=== PATIENT | female | born 1935 | race Caucasian/White ===

== ENCOUNTER 2018-04-01 15:56 | Outpatient (CLI) | payer MEDICARE ==
--- NOTE | 2018-04-01 16:18 | RAD ---
RIGHT HAND TWO VIEWS: History: Right hand pain. FINDINGS/IMPRESSION: Degenerative changes are seen. No acute fracture, dislocation, or bony destruction identified. POS: [facility]
--- NOTE | 2018-04-01 17:29 | RAD ---
LUMBAR SPINE 3 VIEWS: Date: 04/01/18 HISTORY: Low back pain. FINDINGS/IMPRESSION: Multilevel degenerative changes are seen with mild levoscoliosis of the lumbar spine. No fracture, spicer bluxation, or bony destruction is identified. Vascular calcifications are present. There is suggestio n of a 3.2 cm aneurysm in the abdominal aorta at L3-4 level. This should be evaluated with an ultraso und of the abdominal aorta. CODE T POS: [facility]
== END 2018-04-01 15:57 | disposition home or self-care (01) ==
LOC: RAD-FRANK 15:56
PROVIDERS: ATTEND Internal Medicine
DX: M54.9 Dorsalgia, unspecified (principal); M79.641 Pain in right hand; M47.816 Spondylosis without myelopathy or radiculopathy, lumbar region; M41.9 Scoliosis, unspecified; M19.041 Primary osteoarthritis, right hand
CPT/HCPCS: 72100

== ENCOUNTER 2019-04-28 15:41 | Outpatient (CLI) | payer MEDICARE ==
--- NOTE | 2019-04-28 15:57 | RAD ---
Exam: XR Hip Lt 2-3 View HISTORY: Left hip pain. COMPARISON: None FINDINGS: Radiopaque suture material overlies the lower aspect of the pubic symphysis. No acute fracture, dislocation, or other acute osseous abnormality is identified. Vascular calcifications are seen in the femoral artery. IMPRESSION: No acute osseous abnormality is identified. If there is strong clinical concern for a fracture, MRI w ould be more sensitive study of choice for evaluation of a radiographically occult fracture.
== END 2019-04-28 15:42 | disposition home or self-care (01) ==
LOC: RAD-FRANK 15:41
PROVIDERS: ATTEND Internal Medicine
DX: M25.551 Pain in right hip (principal)

== ENCOUNTER 2021-02-28 08:13 | Inpatient (IN) | payer MEDICARE ==
[2021-02-28 09:56] LABS: #Eosinphils 0.1 thou/uL (0.0-0.7); #Lymphocytes 0.9 thou/uL (1.20-3.40); #Monocytes 0.4 thou/uL (0.11-0.59); #Neutrophils 4.4 thou/uL (1.40-6.50); %Basophils 0.3 % (0.0-1.0); %Eosinophils 1.6 % (0.0-10.0); %Lymphocytes 15.8 % (21.0-51.0); %Monocytes 6.2 % (0.0-10.0); %Neutrophils 76.1 % (42.0-75.0); Hemoglobin 13.8 g/dL (12.0-16.0); Mean Corpuscular HGB CONC 33.5 g/dL (32.0-36.0); Mean Corpuscular Hemoglobin 33.7 pg (27.0-31.0); Mean Platelet Volume 6.9 fL (7.4-10.4); Platelet Count 234 thou/uL (130-400); RBC Distribution Width 12.2 % (11.5-14.5); White Blood Cell (WBC) Count 5.7 thou/uL (4.8-10.8)
[2021-02-28 10:22] LABS: ALT (SGPT) 22 U/L (8-55); AST (SGOT) 38 U/L (5-34); Albumin 3.9 g/dL (3.4-4.8); Alkaline Phosphatase 47 U/L (40-110); Anion Gap 15 mmol/L (10-20); BUN (Urea Nitrogen) 13 mg/dL (9.8-20.1); Bilirubin, Total 0.4 mg/dL (0.2-1.2); Calc. Creatinine Clearance 0 mL/min (70-130); Calcium 9.1 mg/dL (7.8-10.44); Carbon Dioxide 22 mmol/L (23-31); Chloride 105 mmol/L (98-107); Globulin 3.7 g/dL (2.4-3.5); Glucose 231 mg/dL (83-110); Lipase 39 U/L (8-78); Magnesium 1.9 mg/dL (1.6-2.6); Potassium 4.1 mmol/L (3.5-5.1); Protein, Total 7.6 g/dL (5.8-8.1); Sodium 138 mmol/L (136-145)
[2021-02-28] MEDS ORDERED: Lidocaine Viscous Sol 2% 15 ml UD Cup ONE (12:58)
[2021-02-28] MEDS ORDERED: Mag-Al 1200 mg/1200 mg/30 ML UDCUP ONE (12:58)
[2021-02-28] MEDS ORDERED: Calcium Carbonate 500 MG ChewTAB PO PRN (15:03)
[2021-02-28] MEDS ORDERED: Bisacodyl 5 MG TAB PO PRN (15:03)
[2021-02-28] MEDS ORDERED: Acetaminophen 325 MG TAB PO PRN (15:03)
[2021-02-28] MEDS ORDERED: Ondansetron PF 4 MG/2 ML Vial IVP PRN (15:03)
[2021-02-28] MEDS ORDERED: Dextrose 5% in Water 1,000 ML IV PRN (15:09)
[2021-02-28] MEDS ORDERED: Dextrose 50% Abboject 50 ML SYRINGE SLOW IVP PRN (15:09)
[2021-02-28] MEDS ORDERED: Pantoprazole 40 MG VIAL IVP SCH (15:15)
[2021-02-28] MEDS ORDERED: Sodium Chloride 0.9% 1,000 ML IV SCH (16:00)
[2021-02-28 16:06] LABS: Troponin I Less than 0.010 ng/mL (< 0.028)
[2021-02-28 16:50] LABS: SARS-CoV-2 NAA Rapid Test Not Detected (NotDetected)
[2021-02-28] MEDS: Carvedilol 3.125 MG TAB PO SCH (18:29)
[2021-02-28] MEDS: Dicyclomine 10 MG CAP PO SCH ×2 (18:30→20:23)
[2021-02-28 18:35] LABS: Troponin I Less than 0.010 ng/mL (< 0.028)
[2021-02-28] MEDS ORDERED: Bisacodyl 5 MG TAB PO SCH (19:00)
[2021-02-28 19:47] VITALS: BMI 28.1
[2021-02-28] MEDS: Simethicone Chewable 80 MG TAB PO SCH ×2 (20:22→21:54)
[2021-02-28] MEDS: Atorvastatin Calcium 40 MG TAB PO SCH (20:23)
[2021-03-01] MEDS ORDERED: Enoxaparin Sodium 40 MG/0.4 ML SYRINGE SC SCH (09:00)
[2021-03-01] MEDS ORDERED: Clopidogrel Bisulfate 75 MG TAB PO SCH (09:00)
[2021-03-01] MEDS: Aspirin 81 mg Enteric Coated Tablet PO SCH (09:05)
[2021-03-01] MEDS: Simethicone Chewable 80 MG TAB PO SCH ×4 (09:05→20:46)
[2021-03-01] MEDS: Dicyclomine 10 MG CAP PO SCH ×2 (09:06→13:07)
[2021-03-01] MEDS: Carvedilol 3.125 MG TAB PO SCH ×2 (09:06→17:36)
[2021-03-01] MEDS: Amlodipine 5 MG TAB PO SCH ×2 (09:12→20:46)
[2021-03-01 09:16] LABS: #Lymphocytes 0.9 thou/uL (1.20-3.40); #Monocytes 0.5 thou/uL (0.11-0.59); #Neutrophils 4.9 thou/uL (1.40-6.50); %Basophils 0.2 % (0.0-1.0); %Eosinophils 0.7 % (0.0-10.0); %Lymphocytes 14.7 % (21.0-51.0); %Monocytes 8.2 % (0.0-10.0); %Neutrophils 76.2 % (42.0-75.0); Hemoglobin 13.4 g/dL (12.0-16.0); Mean Corpuscular HGB CONC 32.9 g/dL (32.0-36.0); Mean Corpuscular Hemoglobin 32.7 pg (27.0-31.0); Mean Corpuscular Volume 99.4 fL (78.0-98.0); Platelet Count 261 thou/uL (130-400); RBC Distribution Width 11.8 % (11.5-14.5); Red Blood Cell (RBC) Count 4.09 mill/uL (4.20-5.40); White Blood Cell (WBC) Count 6.4 thou/uL (4.8-10.8)
[2021-03-01 09:45] LABS: Hemoglobin A1c 8.1 % (4.0-6.0)
[2021-03-01 09:46] LABS: ALT (SGPT) 20 U/L (8-55); AST (SGOT) 28 U/L (5-34); Albumin 3.6 g/dL (3.4-4.8); Alkaline Phosphatase 44 U/L (40-110); Anion Gap 14 mmol/L (10-20); BUN (Urea Nitrogen) 11 mg/dL (9.8-20.1); Bilirubin, Total 0.4 mg/dL (0.2-1.2); Calc. Creatinine Clearance 42 mL/min (70-130); Calcium 8.8 mg/dL (7.8-10.44); Carbon Dioxide 21 mmol/L (23-31); Chloride 108 mmol/L (98-107); Cholesterol 131 mg/dl (< 200 Desired); Globulin 3.4 g/dL (2.4-3.5); Glucose 188 mg/dL (83-110); HDL Cholesterol 26 mg/dL (>60 Neg Risk); LDL Cholesterol, Calculated 68 mg/dL; Potassium 3.8 mmol/L (3.5-5.1); Sodium 139 mmol/L (136-145); Triglycerides 183 mg/dL (Less than 150)
[2021-03-01] MEDS: Atorvastatin Calcium 40 MG TAB PO SCH (20:46)
[2021-03-02] MEDS: Levothyroxine Sodium 125 MCG TAB PO SCH (04:45)
[2021-03-02 05:00] LABS: #Eosinphils 0.1 thou/uL (0.0-0.7); #Lymphocytes 1.4 thou/uL (1.20-3.40); #Monocytes 0.5 thou/uL (0.11-0.59); #Neutrophils 3.7 thou/uL (1.40-6.50); %Basophils 0.3 % (0.0-1.0); %Eosinophils 1.8 % (0.0-10.0); %Lymphocytes 25.1 % (21.0-51.0); %Monocytes 8.3 % (0.0-10.0); %Neutrophils 64.6 % (42.0-75.0); Hemoglobin 13.4 g/dL (12.0-16.0); Mean Corpuscular HGB CONC 33.6 g/dL (32.0-36.0); Mean Corpuscular Hemoglobin 33.3 pg (27.0-31.0); Mean Corpuscular Volume 99.2 fL (78.0-98.0); Platelet Count 266 thou/uL (130-400); RBC Distribution Width 11.9 % (11.5-14.5); Red Blood Cell (RBC) Count 4.01 mill/uL (4.20-5.40); White Blood Cell (WBC) Count 5.7 thou/uL (4.8-10.8)
[2021-03-02 05:24] LABS: Anion Gap 10 mmol/L (10-20); BUN (Urea Nitrogen) 14 mg/dL (9.8-20.1); Calc. Creatinine Clearance 43 mL/min (70-130); Carbon Dioxide 24 mmol/L (23-31); Chloride 106 mmol/L (98-107); Potassium 3.8 mmol/L (3.5-5.1); Sodium 136 mmol/L (136-145)
[2021-03-02 05:25] LABS: Calcium 9.1 mg/dL (7.8-10.44); Glucose 190 mg/dL (83-110); Magnesium 2.1 mg/dL (1.6-2.6)
[2021-03-02] MEDS ORDERED: Sodium Chloride 0.9% 1,000 ML IV SCH (06:00)
[2021-03-02] MEDS ORDERED: CEFAZOLIN 1 GM VIAL ONE (06:35)
[2021-03-02] MEDS ORDERED: ceFAZolin 2 GM/DEX 5% 100 ML BAG ONE (06:35)
[2021-03-02] MEDS ORDERED: Gentamicin 80 MG/2 ML VIAL ONE (06:35)
[2021-03-02] MEDS ORDERED: Vancomycin HCl 500 MG VIAL ONE (06:35)
[2021-03-02] MEDS ORDERED: Fentanyl 100 MCG/2 ML VIAL ONE (07:08)
[2021-03-02] MEDS ORDERED: Midazolam HCl 2 mg/2 ml Vial ONE (07:08)
[2021-03-02] MEDS ORDERED: Lidocaine 1% (PF) 30 ML VIAL ONE ×2 (07:16→08:28)
[2021-03-02] MEDS ORDERED: Carvedilol 3.125 MG TAB ONE ×2 (08:28)
[2021-03-02] MEDS ORDERED: Acetaminophen/Codeine 30-300mg Tablet PO PRN ×2 (08:59)
[2021-03-02] MEDS ORDERED: Iopamidol 370 76% 50 ML VIAL FS ONE (09:00)
[2021-03-02] MEDS: Amlodipine 5 MG TAB PO SCH ×2 (09:05→20:39)
[2021-03-02] MEDS: Aspirin 81 mg Enteric Coated Tablet PO SCH (09:05)
[2021-03-02] MEDS: Simethicone Chewable 80 MG TAB PO SCH ×4 (09:06→22:16)
[2021-03-02] MEDS: Carvedilol 3.125 MG TAB PO SCH (09:07)
[2021-03-02] MEDS: Cephalexin 250 MG CAP PO SCH ×3 (10:16→20:39)
[2021-03-02] MEDS ORDERED: hydrALAZINE 20 MG/ML VIAL SLOW IVP PRN (12:35)
[2021-03-02] MEDS: Carvedilol 6.25 MG TAB PO SCH ×2 (15:04→20:38)
[2021-03-02] MEDS: HumaLOG 300 UNITS/3 ML VIAL SC PRN ×2 (17:04→20:42)
[2021-03-02] MEDS ORDERED: Empagliflozin 10 MG TAB PO SCH ×2 (18:15→21:00)
[2021-03-02] MEDS: Atorvastatin Calcium 40 MG TAB PO SCH (20:39)
[2021-03-03] MEDS ORDERED: traZODone HCl 50 MG TAB PO SCH (01:30)
[2021-03-03 05:08] LABS: #Eosinphils 0.2 thou/uL (0.0-0.7); #Lymphocytes 1.5 thou/uL (1.20-3.40); #Monocytes 0.8 thou/uL (0.11-0.59); #Neutrophils 5.8 thou/uL (1.40-6.50); %Basophils 0.3 % (0.0-1.0); %Eosinophils 2.1 % (0.0-10.0); %Lymphocytes 18.2 % (21.0-51.0); %Monocytes 9.1 % (0.0-10.0); %Neutrophils 70.3 % (42.0-75.0); Mean Corpuscular HGB CONC 35.1 g/dL (32.0-36.0); Mean Corpuscular Hemoglobin 34.6 pg (27.0-31.0); Mean Corpuscular Volume 98.7 fL (78.0-98.0); Platelet Count 243 thou/uL (130-400); Red Blood Cell (RBC) Count 4.04 mill/uL (4.20-5.40); White Blood Cell (WBC) Count 8.2 thou/uL (4.8-10.8)
[2021-03-03] MEDS: Levothyroxine Sodium 125 MCG TAB PO SCH (05:16)
[2021-03-03 05:30] LABS: Anion Gap 14 mmol/L (10-20); BUN (Urea Nitrogen) 15 mg/dL (9.8-20.1); Calc. Creatinine Clearance 37 mL/min (70-130); Calcium 8.9 mg/dL (7.8-10.44); Carbon Dioxide 23 mmol/L (23-31); Chloride 106 mmol/L (98-107); Glucose 184 mg/dL (83-110); Magnesium 1.9 mg/dL (1.6-2.6); Potassium 3.8 mmol/L (3.5-5.1); Sodium 139 mmol/L (136-145)
[2021-03-03] MEDS: HumaLOG 300 UNITS/3 ML VIAL SC PRN ×3 (06:18→17:37)
[2021-03-03] MEDS: Carvedilol 6.25 MG TAB PO SCH ×3 (08:40→21:05)
[2021-03-03] MEDS: Simethicone Chewable 80 MG TAB PO SCH ×4 (08:40→21:06)
[2021-03-03] MEDS: Cephalexin 250 MG CAP PO SCH ×3 (08:40→21:10)
[2021-03-03] MEDS: Amlodipine 5 MG TAB PO SCH ×2 (08:40→21:05)
[2021-03-03] MEDS: Aspirin 81 mg Enteric Coated Tablet PO SCH (08:40)
[2021-03-03] MEDS: Empagliflozin 10 MG TAB PO SCH (08:43)
[2021-03-03] MEDS: Sodium Chloride 0.9% 1,000 ML IV SCH ×2 (10:52→21:04)
[2021-03-03] MEDS ORDERED: Bisacodyl 5 MG TAB PO SCH (13:00)
[2021-03-03] MEDS: Senokot S 8.6-50 MG TAB PO PRN (17:37)
[2021-03-03] MEDS: Atorvastatin Calcium 40 MG TAB PO SCH (21:05)
[2021-03-03] MEDS: traZODone HCl 50 MG TAB PO SCH (21:06)
[2021-03-04 04:45] LABS: #Eosinphils 0.2 thou/uL (0.0-0.7); #Lymphocytes 1.3 thou/uL (1.20-3.40); #Monocytes 0.7 thou/uL (0.11-0.59); #Neutrophils 5.1 thou/uL (1.40-6.50); %Basophils 0.6 % (0.0-1.0); %Eosinophils 3.3 % (0.0-10.0); %Lymphocytes 17.6 % (21.0-51.0); %Monocytes 9.1 % (0.0-10.0); %Neutrophils 69.5 % (42.0-75.0); Hemoglobin 13.8 g/dL (12.0-16.0); Mean Corpuscular HGB CONC 34.2 g/dL (32.0-36.0); Mean Corpuscular Hemoglobin 33.7 pg (27.0-31.0); Mean Corpuscular Volume 98.6 fL (78.0-98.0); Mean Platelet Volume 7.1 fL (7.4-10.4); Platelet Count 201 thou/uL (130-400); RBC Distribution Width 12.1 % (11.5-14.5); Red Blood Cell (RBC) Count 4.09 mill/uL (4.20-5.40); White Blood Cell (WBC) Count 7.3 thou/uL (4.8-10.8)
[2021-03-04 05:08] LABS: Anion Gap 15 mmol/L (10-20); BUN (Urea Nitrogen) 15 mg/dL (9.8-20.1); Calc. Creatinine Clearance 49 mL/min (70-130); Carbon Dioxide 19 mmol/L (23-31); Chloride 108 mmol/L (98-107); Glucose 159 mg/dL (83-110); Magnesium 1.9 mg/dL (1.6-2.6); Potassium 3.7 mmol/L (3.5-5.1); Sodium 138 mmol/L (136-145)
[2021-03-04] MEDS: Levothyroxine Sodium 125 MCG TAB PO SCH (05:42)
[2021-03-04] MEDS: HumaLOG 300 UNITS/3 ML VIAL SC PRN ×3 (06:27→16:52)
[2021-03-04] MEDS: Amlodipine 5 MG TAB PO SCH ×2 (08:24→20:40)
[2021-03-04] MEDS: Carvedilol 6.25 MG TAB PO SCH ×3 (08:24→20:40)
[2021-03-04] MEDS: Senokot S 8.6-50 MG TAB PO PRN (08:24)
[2021-03-04] MEDS: Simethicone Chewable 80 MG TAB PO SCH ×4 (08:24→20:40)
[2021-03-04] MEDS: Empagliflozin 10 MG TAB PO SCH (08:24)
[2021-03-04] MEDS: Aspirin 81 mg Enteric Coated Tablet PO SCH (08:25)
[2021-03-04] MEDS: Cephalexin 250 MG CAP PO SCH ×3 (08:25→20:40)
[2021-03-04] MEDS: Sodium Chloride 0.9% 1,000 ML IV SCH (10:35)
[2021-03-04] MEDS: Atorvastatin Calcium 40 MG TAB PO SCH (20:40)
[2021-03-04] MEDS: traZODone HCl 50 MG TAB PO SCH (20:40)
[2021-03-04] MEDS ORDERED: Acetaminophen/Codeine 30-300mg Tablet PO PRN ×2 (22:04)
[2021-03-05] MEDS: Levothyroxine Sodium 125 MCG TAB PO SCH (05:17)
[2021-03-05] MEDS: Simethicone Chewable 80 MG TAB PO SCH ×4 (08:37→20:24)
[2021-03-05] MEDS: Carvedilol 6.25 MG TAB PO SCH ×3 (08:37→20:24)
[2021-03-05] MEDS: Empagliflozin 10 MG TAB PO SCH (08:37)
[2021-03-05] MEDS: Aspirin 81 mg Enteric Coated Tablet PO SCH (08:37)
[2021-03-05] MEDS: Amlodipine 5 MG TAB PO SCH ×2 (08:37→20:24)
[2021-03-05] MEDS: Cephalexin 250 MG CAP PO SCH ×3 (08:37→20:24)
[2021-03-05] MEDS ORDERED: traMADol HCl 50 MG TAB PO PRN (15:49)
[2021-03-05] MEDS: Atorvastatin Calcium 40 MG TAB PO SCH (20:24)
[2021-03-05] MEDS: traZODone HCl 50 MG TAB PO SCH (20:25)
[2021-03-06] MEDS: Levothyroxine Sodium 125 MCG TAB PO SCH (05:12)
[2021-03-06] MEDS: HumaLOG 300 UNITS/3 ML VIAL SC PRN ×3 (06:19→18:11)
[2021-03-06] MEDS: Cephalexin 250 MG CAP PO SCH ×2 (09:04→15:38)
[2021-03-06] MEDS: Amlodipine 5 MG TAB PO SCH (09:04)
[2021-03-06] MEDS: Aspirin 81 mg Enteric Coated Tablet PO SCH (09:04)
[2021-03-06] MEDS: Carvedilol 6.25 MG TAB PO SCH ×2 (09:04→15:38)
[2021-03-06] MEDS: Empagliflozin 10 MG TAB PO SCH (09:04)
[2021-03-06] MEDS: Simethicone Chewable 80 MG TAB PO SCH ×3 (09:04→18:12)
[2021-03-06 16:45] VITALS: BP 158/70; TEMP 98
== END 2021-03-06 19:10 | DRG 244 ==
LOC: ERS 08:13 → SUATTDRO 08:13 → 2NO 14:58 → OBSVTOIN 03-02 13:26
PROVIDERS: ADMIT Internal Medicine; ATTEND Internal Medicine
PROC: 0JH606Z Insertion of Pacemaker, Dual Chamber into Chest Subcutaneous Tissue and Fascia, Open Approach (ICD-10-PCS; principal; 2021-03-02)
PROC: 02H63JZ Insertion of Pacemaker Lead into Right Atrium, Percutaneous Approach (ICD-10-PCS; 2021-03-02)
PROC: 02HK3JZ Insertion of Pacemaker Lead into Right Ventricle, Percutaneous Approach (ICD-10-PCS; 2021-03-02)
PROC: B51N1ZZ Fluoroscopy of Left Upper Extremity Veins using Low Osmolar Contrast (ICD-10-PCS; 2021-03-02)
DX: I44.1 Atrioventricular block, second degree (principal); I10 Essential (primary) hypertension; E78.5 Hyperlipidemia, unspecified; Z66 Do not resuscitate; Z20.822 Contact with and (suspected) exposure to COVID-19; E11.65 Type 2 diabetes mellitus with hyperglycemia; I25.10 Atherosclerotic heart disease of native coronary artery without angina pectoris; I71.4 Abdominal aortic aneurysm, without rupture; N28.1 Cyst of kidney, acquired; K76.0 Fatty (change of) liver, not elsewhere classified; E88.81 Metabolic syndrome and other insulin resistance; Z85.3 Personal history of malignant neoplasm of breast; Z90.13 Acquired absence of bilateral breasts and nipples; Z95.5 Presence of coronary angioplasty implant and graft; Z79.01 Long term (current) use of anticoagulants; Z79.84 Long term (current) use of oral hypoglycemic drugs; Z79.890 Hormone replacement therapy; Z79.899 Other long term (current) drug therapy
CPT/HCPCS: 33208; 36415; 36416; 71045; 74177; 80048; 80053; 80061; 83036; 83690; 83735; 84443; 84484; 85025; 93005; 93010; 93306; 94760; 96372; 97139; 99152; 99153; C1785; C1898; G0378; J0690; J1580; J1650; J1815; J2001; J2250; J2405; J3010; J3370; J7050; Q9967; U0002

== ENCOUNTER 2021-03-26 19:11 | Inpatient (IN) | payer MEDICARE ==
[~2021-03-26 19:11] MED LIST: Iopamidol-370 76% 500 ML 1 ML ONE
[2021-03-26] MEDS ORDERED: Acetaminophen 500 MG TAB ONE (19:58)
[2021-03-26] MEDS ORDERED: Cefepime 2 GM VIAL ONE (20:03)
[2021-03-26 20:05] LABS: #Lymphocytes 0.3 thou/uL (1.20-3.40); #Monocytes 0.1 thou/uL (0.11-0.59); #Neutrophils 7.1 thou/uL (1.40-6.50); %Lymphocytes 3.7 % (21.0-51.0); %Monocytes 1.2 % (0.0-10.0); Hemoglobin 13.9 g/dL (12.0-16.0); Mean Corpuscular HGB CONC 34.4 g/dL (32.0-36.0); Mean Corpuscular Hemoglobin 34.6 pg (27.0-31.0); Mean Platelet Volume 6.9 fL (7.4-10.4); Platelet Count 165 thou/uL (130-400); RBC Distribution Width 12.7 % (11.5-14.5); Red Blood Cell (RBC) Count 4.02 mill/uL (4.20-5.40); White Blood Cell (WBC) Count 7.5 thou/uL (4.8-10.8)
[2021-03-26 20:27] LABS: ALT (SGPT) 14 U/L (8-55); AST (SGOT) 30 U/L (5-34); Albumin 3.5 g/dL (3.4-4.8); Alkaline Phosphatase 55 U/L (40-110); Anion Gap 21 mmol/L (10-20); BUN (Urea Nitrogen) 19 mg/dL (9.8-20.1); Bilirubin, Total 1.5 mg/dL (0.2-1.2); CK (CPK) 345 U/L (29-168); Calc. Creatinine Clearance 0 mL/min (70-130); Calcium 8.7 mg/dL (7.8-10.44); Carbon Dioxide 13 mmol/L (23-31); Chloride 108 mmol/L (98-107); Globulin 3.2 g/dL (2.4-3.5); Glucose 226 mg/dL (83-110); Lipase 18 U/L (8-78); Potassium 3.6 mmol/L (3.5-5.1); Protein, Total 6.7 g/dL (5.8-8.1); Sodium 138 mmol/L (136-145)
[2021-03-26 20:46] LABS: CKMB 0.5 ng/mL (0-6.6)
[2021-03-26 20:50] LABS: Bacteria/HPF 2+ HPF (None Seen); Bilirubin 1+ (Negative); Blood, Urine 2+ (Negative); Clarity Turbid (Clear); Glucose, Urine (Dipstick) Greater than 1000 mg/dL (Negative); Ketone, Urine 40 mg/dL (Negative); Leukocyte 75 Leu/uL (Negative); Nitrite Negative (Negative); Protein, Urine (Dipstick) Greater than 600 mg/dL (Neg-Trace); RBC/HPF 0-3 HPF (0-3); Specific Gravity, Urine 1.028 (1.002-1.036); Squamous Epithelial 0-3 HPF (0-3); WBC/HPF Greater than 50 HPF (0-3); pH, Urine 6.5 (5.0-9.0)
[2021-03-26] MEDS ORDERED: Vancomycin 1 GM/200 ML BAG ONE (21:30)
[2021-03-26 23:20] LABS: SARS-CoV-2 NAA Rapid Test Not Detected (NotDetected)
[2021-03-26] MEDS ORDERED: Ondansetron ODT 4 MG TAB PO PRN (23:57)
[2021-03-26] MEDS ORDERED: Ondansetron PF 4 MG/2 ML Vial IVP PRN (23:57)
[2021-03-26] MEDS ORDERED: Acetaminophen 650 MG Suppository PR PRN (23:57)
[2021-03-27] MEDS ORDERED: Dextrose 5% in Water 1,000 ML IV PRN (00:26)
[2021-03-27] MEDS ORDERED: Dextrose 50% Abboject 50 ML SYRINGE SLOW IVP PRN (00:26)
[2021-03-27] MEDS ORDERED: HumaLOG 300 UNITS/3 ML VIAL SC PRN (00:26)
[2021-03-27 00:32] VITALS: BMI 25.8
[2021-03-27 00:52] LABS: Troponin I 0.102 ng/mL (< 0.028)
[2021-03-27] MEDS ORDERED: Sodium Chloride 0.9% 1,000 ML IV SCH (02:45)
[2021-03-27 03:09] LABS: Hemoglobin 11.6 g/dL (12.0-16.0); Mean Corpuscular HGB CONC 34.5 g/dL (32.0-36.0); Mean Corpuscular Hemoglobin 34.5 pg (27.0-31.0); Mean Corpuscular Volume 99.9 fL (78.0-98.0); Mean Platelet Volume 7.3 fL (7.4-10.4); Platelet Count 156 thou/uL (130-400); RBC Distribution Width 12.7 % (11.5-14.5); Red Blood Cell (RBC) Count 3.36 mill/uL (4.20-5.40); White Blood Cell (WBC) Count 12.7 thou/uL (4.8-10.8)
[2021-03-27 03:23] LABS: Troponin I 0.077 ng/mL (< 0.028)
[2021-03-27 03:46] LABS: Anion Gap 16 mmol/L (10-20); BUN (Urea Nitrogen) 22 mg/dL (9.8-20.1); Calc. Creatinine Clearance 36 mL/min (70-130); Calcium 7.7 mg/dL (7.8-10.44); Carbon Dioxide 15 mmol/L (23-31); Chloride 111 mmol/L (98-107); Glucose 238 mg/dL (83-110); Potassium 3.5 mmol/L (3.5-5.1); Sodium 138 mmol/L (136-145)
[2021-03-27 03:59] LABS: Band 28 % (5-11); Lymphocytes 2 % (21-51); MDiff Complete? YES; Monocytes 1 % (0-10); Neutrophil 69 % (42-75)
[2021-03-27] MEDS ORDERED: Calcium Carbonate 500 MG ChewTAB PO PRN (08:54)
[2021-03-27] MEDS ORDERED: Vancomycin 1.5 GRAM/300 ML BAG 1.5 GM in Premix Bag 1 BAG IVPB SCH (09:00)
[2021-03-27] MEDS ORDERED: Cefepime 2 GM in Sodium Chloride 0.9% 100 ML IVPB SCH ×2 (09:00→20:00)
[2021-03-27] MEDS: Enoxaparin Sodium 40 MG/0.4 ML SYRINGE SC SCH (09:41)
[2021-03-27] MEDS: Senokot S 8.6-50 MG TAB PO SCH ×2 (09:46→21:28)
[2021-03-27] MEDS: D5 1/2 NS w/20 mEq KCL 1,000 ML IV SCH ×3 (09:55→19:42)
[2021-03-27] MEDS ORDERED: metroNIDAZOLE 500 MG in Premix Bag 1 BAG IVPB SCH (10:00)
[2021-03-27 10:35] LABS: Anion Gap 14 mmol/L (10-20); BUN (Urea Nitrogen) 23 mg/dL (9.8-20.1); Calc. Creatinine Clearance 35 mL/min (70-130); Calcium 8.1 mg/dL (7.8-10.44); Carbon Dioxide 19 mmol/L (23-31); Chloride 110 mmol/L (98-107); Glucose 180 mg/dL (83-110); Magnesium 1.6 mg/dL (1.6-2.6); Sodium 139 mmol/L (136-145)
[2021-03-27 10:37] LABS: Phosphorus 2.5 mg/dL (2.3-4.7)
[2021-03-27] MEDS ORDERED: Magnesium Sulfate 4 GM in Sodium Chloride 0.9% 250 ML 250 ML IVPB SCH (12:00)
[2021-03-27] MEDS ORDERED: MEROPENEM 1 GM/50 ML 1 GM in Premix Bag 1 BAG IVPB SCH (16:15)
[2021-03-27] MEDS: Acetaminophen 325 MG TAB PO PRN (16:46)
[2021-03-27] MEDS ORDERED: Vancomycin HCl 750 MG in Sodium Chloride 0.9% 250 ML 250 ML IVPB SCH (21:00)
[2021-03-27] MEDS ORDERED: Meropenem 1 GM in Sodium Chloride 0.9% 100 ML IVPB SCH (22:00)
[2021-03-28] MEDS: MEROPENEM 1 GM/50 ML 1 GM in Premix Bag 1 BAG IVPB SCH ×2 (01:33→14:58)
[2021-03-28] MEDS: D5 1/2 NS w/20 mEq KCL 1,000 ML IV SCH ×2 (02:58→15:03)
[2021-03-28] MEDS ORDERED: FLU VACC QS2021-22(65YR UP)/PF 240 MCG/0.7 ML SYRINGE IM ONE (09:00)
[2021-03-28] MEDS ORDERED: D5 1/2 NS w/20 mEq KCL 1,000 ML IV SCH (09:55)
[2021-03-28] MEDS: Enoxaparin Sodium 40 MG/0.4 ML SYRINGE SC SCH (10:16)
[2021-03-28] MEDS: Acetaminophen 325 MG TAB PO PRN ×2 (10:17→23:36)
[2021-03-28] MEDS ORDERED: Aspirin 81 mg Enteric Coated Tablet PO SCH (11:30)
[2021-03-28] MEDS ORDERED: Carvedilol 3.125 MG TAB PO SCH (11:30)
[2021-03-28] MEDS ORDERED: Clopidogrel Bisulfate 75 MG TAB PO SCH (11:30)
[2021-03-28] MEDS ORDERED: tiZANidine HCl 4 MG TAB PO PRN (11:44)
[2021-03-28 12:28] LABS: #Eosinphils 0.1 thou/uL (0.0-0.7); #Lymphocytes 0.7 thou/uL (1.20-3.40); #Monocytes 0.5 thou/uL (0.11-0.59); #Neutrophils 5.2 thou/uL (1.40-6.50); %Eosinophils 0.8 % (0.0-10.0); %Lymphocytes 10.3 % (21.0-51.0); %Monocytes 7.5 % (0.0-10.0); %Neutrophils 81.3 % (42.0-75.0); Hemoglobin 10.4 g/dL (12.0-16.0); Mean Corpuscular HGB CONC 33.9 g/dL (32.0-36.0); Mean Corpuscular Hemoglobin 33.5 pg (27.0-31.0); Mean Corpuscular Volume 98.8 fL (78.0-98.0); Mean Platelet Volume 7.4 fL (7.4-10.4); Platelet Count 167 thou/uL (130-400); RBC Distribution Width 12.6 % (11.5-14.5); Red Blood Cell (RBC) Count 3.09 mill/uL (4.20-5.40); White Blood Cell (WBC) Count 6.4 thou/uL (4.8-10.8)
[2021-03-28 12:45] LABS: ALT (SGPT) 10 U/L (8-55); AST (SGOT) 18 U/L (5-34); Albumin 2.8 g/dL (3.4-4.8); Alkaline Phosphatase 47 U/L (40-110); Anion Gap 11 mmol/L (10-20); BUN (Urea Nitrogen) 16 mg/dL (9.8-20.1); Bilirubin, Total 0.3 mg/dL (0.2-1.2); Calc. Creatinine Clearance 38 mL/min (70-130); Calcium 7.9 mg/dL (7.8-10.44); Carbon Dioxide 17 mmol/L (23-31); Chloride 110 mmol/L (98-107); Globulin 2.8 g/dL (2.4-3.5); Glucose 253 mg/dL (83-110); Magnesium 2.3 mg/dL (1.6-2.6); Phosphorus 1.2 mg/dL (2.3-4.7); Potassium 3.7 mmol/L (3.5-5.1); Protein, Total 5.6 g/dL (5.8-8.1); Sodium 134 mmol/L (136-145)
[2021-03-28] MEDS ORDERED: Amlodipine 5 MG TAB PO SCH (13:00)
[2021-03-28] MEDS ORDERED: Potassium Phosphate 30 MMOL in Sodium Chloride 0.9% 500 ML IVPB SCH (13:00)
[2021-03-28] MEDS ORDERED: Potassium Phosphate 30 MMOL in Sodium Chloride 0.9% 250 ML 250 ML IVPB SCH (13:45)
[2021-03-28] MEDS: Senokot S 8.6-50 MG TAB PO SCH (14:59)
[2021-03-28] MEDS: Carvedilol 3.125 MG TAB PO SCH (17:02)
[2021-03-28] MEDS ORDERED: Cyanocobalamin 1000 MCG/ML VIAL IM SCH (18:30)
[2021-03-28] MEDS ORDERED: Trospium 20 MG TAB PO SCH (21:00)
[2021-03-28] MEDS: Saccharomyces boulardii 250 MG CAP PO SCH (21:23)
[2021-03-28] MEDS: Folic Acid 1 MG TAB PO SCH (21:23)
[2021-03-28] MEDS: Atorvastatin Calcium 40 MG TAB PO SCH (21:24)
[2021-03-28] MEDS: Amlodipine 5 MG TAB PO SCH (21:24)
[2021-03-28] MEDS: HumaLOG 300 UNITS/3 ML VIAL SC PRN (23:24)
[2021-03-29] MEDS: MEROPENEM 1 GM/50 ML 1 GM in Premix Bag 1 BAG IVPB SCH ×2 (04:20→13:27)
[2021-03-29 05:33] LABS: #Eosinphils 0.1 thou/uL (0.0-0.7); #Monocytes 0.5 thou/uL (0.11-0.59); #Neutrophils 3.8 thou/uL (1.40-6.50); %Basophils 0.1 % (0.0-1.0); %Eosinophils 2.2 % (0.0-10.0); %Lymphocytes 18.8 % (21.0-51.0); %Monocytes 9.4 % (0.0-10.0); %Neutrophils 69.4 % (42.0-75.0); Hemoglobin 10.4 g/dL (12.0-16.0); Mean Corpuscular HGB CONC 33.8 g/dL (32.0-36.0); Mean Corpuscular Hemoglobin 34.2 pg (27.0-31.0); Mean Platelet Volume 7.5 fL (7.4-10.4); Platelet Count 138 thou/uL (130-400); RBC Distribution Width 12.7 % (11.5-14.5); Red Blood Cell (RBC) Count 3.04 mill/uL (4.20-5.40); White Blood Cell (WBC) Count 5.4 thou/uL (4.8-10.8)
[2021-03-29] MEDS: Levothyroxine Sodium 125 MCG TAB PO SCH (05:56)
[2021-03-29 06:49] LABS: Albumin 2.6 g/dL (3.4-4.8); Anion Gap 10 mmol/L (10-20); BUN (Urea Nitrogen) 16 mg/dL (9.8-20.1); Calc. Creatinine Clearance 49 mL/min (70-130); Calcium 8.4 mg/dL (7.8-10.44); Carbon Dioxide 20 mmol/L (23-31); Chloride 112 mmol/L (98-107); Glucose 138 mg/dL (83-110); Phosphorus 2.3 mg/dL (2.3-4.7); Potassium 3.7 mmol/L (3.5-5.1); Sodium 138 mmol/L (136-145)
[2021-03-29] MEDS ORDERED: Amlodipine 5 MG TAB PO SCH (09:00)
[2021-03-29] MEDS ORDERED: Empagliflozin 10 MG TAB PO SCH (09:00)
[2021-03-29] MEDS: Carvedilol 3.125 MG TAB PO SCH (09:16)
[2021-03-29] MEDS: Amlodipine 5 MG TAB PO SCH (09:17)
[2021-03-29] MEDS: Clopidogrel Bisulfate 75 MG TAB PO SCH (09:18)
[2021-03-29] MEDS: Folic Acid 1 MG TAB PO SCH ×2 (09:18→20:01)
[2021-03-29] MEDS: Aspirin 81 mg Enteric Coated Tablet PO SCH (09:18)
[2021-03-29] MEDS: Cyanocobalamin (Vitamin B-12) 1,000 MCG TAB PO SCH (09:18)
[2021-03-29] MEDS: D5 1/2 NS w/20 mEq KCL 1,000 ML IV SCH (12:22)
[2021-03-29] MEDS: Heparin 5,000 UNITS/ML VIAL SC SCH ×2 (12:24→20:01)
[2021-03-29] MEDS ORDERED: Carvedilol 6.25 MG TAB PO SCH (17:00)
[2021-03-29] MEDS: Sodium Bicarbonate 150 MEQ in Dextrose 5% in Water 1,000 ML IV SCH (18:24)
[2021-03-29] MEDS: Potassium Bicarbonate/Cit Ac 20 MEQ TAB PO SCH (18:25)
[2021-03-29] MEDS: Atorvastatin Calcium 40 MG TAB PO SCH (20:01)
[2021-03-29] MEDS: Saccharomyces boulardii 250 MG CAP PO SCH (20:52)
[2021-03-29] MEDS: HumaLOG 300 UNITS/3 ML VIAL SC PRN (22:09)
[2021-03-30] MEDS: MEROPENEM 1 GM/50 ML 1 GM in Premix Bag 1 BAG IVPB SCH ×2 (01:29→15:33)
[2021-03-30] MEDS: hydrALAZINE 20 MG/ML VIAL SLOW IVP PRN (04:55)
[2021-03-30] MEDS: Levothyroxine Sodium 125 MCG TAB PO SCH (05:16)
[2021-03-30 05:40] LABS: #Eosinphils 0.1 thou/uL (0.0-0.7); #Lymphocytes 0.8 thou/uL (1.20-3.40); #Monocytes 0.4 thou/uL (0.11-0.59); #Neutrophils 3.3 thou/uL (1.40-6.50); %Basophils 0.8 % (0.0-1.0); %Eosinophils 2.8 % (0.0-10.0); %Lymphocytes 17.9 % (21.0-51.0); %Monocytes 8.7 % (0.0-10.0); %Neutrophils 69.8 % (42.0-75.0); Hemoglobin 10.9 g/dL (12.0-16.0); Mean Corpuscular Volume 99.8 fL (78.0-98.0); Mean Platelet Volume 7.8 fL (7.4-10.4); Platelet Count 159 thou/uL (130-400); RBC Distribution Width 12.5 % (11.5-14.5); White Blood Cell (WBC) Count 4.7 thou/uL (4.8-10.8)
[2021-03-30 05:57] LABS: Albumin 2.9 g/dL (3.4-4.8); Anion Gap 16 mmol/L (10-20); BUN (Urea Nitrogen) 12 mg/dL (9.8-20.1); BUN/Creatinine Ratio 14.81; Calc. Creatinine Clearance 48 mL/min (70-130); Carbon Dioxide 20 mmol/L (23-31); Chloride 108 mmol/L (98-107); Glucose 147 mg/dL (83-110); Magnesium 1.9 mg/dL (1.6-2.6); Phosphorus 2.3 mg/dL (2.3-4.7); Potassium 3.7 mmol/L (3.5-5.1); Sodium 140 mmol/L (136-145)
[2021-03-30] MEDS ORDERED: Magnesium Sulfate 2 GM in Sodium Chloride 0.9% 100 ML IVPB SCH (08:45)
[2021-03-30] MEDS: Potassium Bicarbonate/Cit Ac 20 MEQ TAB PO SCH ×3 (08:48→17:38)
[2021-03-30] MEDS ORDERED: Magnesium 2 GM/50 ML 2 GM in Premix Bag 1 BAG IVPB SCH (09:00)
[2021-03-30] MEDS ORDERED: Ergocalciferol 1.25 MG(50,000 UNITS) CAP PO SCH (09:00)
[2021-03-30] MEDS: Clopidogrel Bisulfate 75 MG TAB PO SCH (09:35)
[2021-03-30] MEDS: Aspirin 81 mg Enteric Coated Tablet PO SCH (09:35)
[2021-03-30] MEDS: Cyanocobalamin (Vitamin B-12) 1,000 MCG TAB PO SCH (09:35)
[2021-03-30] MEDS: Carvedilol 6.25 MG TAB PO SCH ×2 (09:35→17:38)
[2021-03-30] MEDS: Amlodipine 5 MG TAB PO SCH (09:35)
[2021-03-30] MEDS: Folic Acid 1 MG TAB PO SCH ×2 (09:36→21:06)
[2021-03-30] MEDS: Heparin 5,000 UNITS/ML VIAL SC SCH ×2 (09:36→21:06)
[2021-03-30] MEDS: Sodium Bicarbonate 150 MEQ in Dextrose 5% in Water 1,000 ML IV SCH (17:38)
[2021-03-30] MEDS: Atorvastatin Calcium 40 MG TAB PO SCH (21:06)
[2021-03-30] MEDS: Saccharomyces boulardii 250 MG CAP PO SCH (21:06)
[2021-03-31] MEDS: MEROPENEM 1 GM/50 ML 1 GM in Premix Bag 1 BAG IVPB SCH ×2 (01:29→14:16)
[2021-03-31] MEDS: Sodium Bicarbonate 150 MEQ in Dextrose 5% in Water 1,000 ML IV SCH (03:42)
[2021-03-31 05:02] LABS: #Eosinphils 0.1 thou/uL (0.0-0.7); #Lymphocytes 0.9 thou/uL (1.20-3.40); #Monocytes 0.4 thou/uL (0.11-0.59); #Neutrophils 2.8 thou/uL (1.40-6.50); %Basophils 0.3 % (0.0-1.0); %Eosinophils 2.4 % (0.0-10.0); %Lymphocytes 21.3 % (21.0-51.0); %Monocytes 10.4 % (0.0-10.0); %Neutrophils 65.6 % (42.0-75.0); Hemoglobin 10.8 g/dL (12.0-16.0); Mean Corpuscular HGB CONC 33.1 g/dL (32.0-36.0); Mean Corpuscular Hemoglobin 32.8 pg (27.0-31.0); Mean Corpuscular Volume 98.8 fL (78.0-98.0); Mean Platelet Volume 7.4 fL (7.4-10.4); Platelet Count 182 thou/uL (130-400); RBC Distribution Width 12.4 % (11.5-14.5); White Blood Cell (WBC) Count 4.3 thou/uL (4.8-10.8)
[2021-03-31] MEDS: Levothyroxine Sodium 125 MCG TAB PO SCH (05:26)
[2021-03-31] MEDS: hydrALAZINE 20 MG/ML VIAL SLOW IVP PRN (05:29)
[2021-03-31 05:59] LABS: Anion Gap 13 mmol/L (10-20); BUN (Urea Nitrogen) 10 mg/dL (9.8-20.1); Calc. Creatinine Clearance 45 mL/min (70-130); Calcium 8.5 mg/dL (7.8-10.44); Carbon Dioxide 25 mmol/L (23-31); Chloride 103 mmol/L (98-107); Glucose 169 mg/dL (83-110); Phosphorus 3.2 mg/dL (2.3-4.7); Potassium 3.8 mmol/L (3.5-5.1); Sodium 137 mmol/L (136-145)
[2021-03-31] MEDS: HumaLOG 300 UNITS/3 ML VIAL SC PRN ×2 (06:18→17:49)
[2021-03-31] MEDS: Carvedilol 6.25 MG TAB PO SCH ×2 (09:38→17:48)
[2021-03-31] MEDS: Potassium Bicarbonate/Cit Ac 20 MEQ TAB PO SCH ×3 (09:38→17:48)
[2021-03-31] MEDS: Heparin 5,000 UNITS/ML VIAL SC SCH ×2 (09:39→21:25)
[2021-03-31] MEDS: Amlodipine 5 MG TAB PO SCH (09:39)
[2021-03-31] MEDS: Aspirin 81 mg Enteric Coated Tablet PO SCH (09:39)
[2021-03-31] MEDS: Folic Acid 1 MG TAB PO SCH ×2 (09:39→21:25)
[2021-03-31] MEDS: Clopidogrel Bisulfate 75 MG TAB PO SCH (09:39)
[2021-03-31] MEDS: Cyanocobalamin (Vitamin B-12) 1,000 MCG TAB PO SCH (09:39)
[2021-03-31] MEDS: Acetaminophen 325 MG TAB PO PRN (17:48)
[2021-03-31] MEDS: Saccharomyces boulardii 250 MG CAP PO SCH (21:25)
[2021-03-31] MEDS: Atorvastatin Calcium 40 MG TAB PO SCH (21:26)
[2021-04-01] MEDS: MEROPENEM 1 GM/50 ML 1 GM in Premix Bag 1 BAG IVPB SCH ×2 (01:53→16:16)
[2021-04-01] MEDS: Levothyroxine Sodium 125 MCG TAB PO SCH (06:15)
[2021-04-01] MEDS ORDERED: Carvedilol 6.25 MG TAB PO SCH (09:00)
[2021-04-01] MEDS: Cyanocobalamin (Vitamin B-12) 1,000 MCG TAB PO SCH (09:45)
[2021-04-01] MEDS: Clopidogrel Bisulfate 75 MG TAB PO SCH (09:45)
[2021-04-01] MEDS: Potassium Bicarbonate/Cit Ac 20 MEQ TAB PO SCH ×2 (09:45→16:23)
[2021-04-01] MEDS: Folic Acid 1 MG TAB PO SCH ×2 (09:45→21:17)
[2021-04-01] MEDS: Heparin 5,000 UNITS/ML VIAL SC SCH ×2 (09:45→21:28)
[2021-04-01] MEDS: Aspirin 81 mg Enteric Coated Tablet PO SCH (09:45)
[2021-04-01] MEDS: Amlodipine 5 MG TAB PO SCH (09:45)
[2021-04-01] MEDS: traMADol HCl 50 MG TAB PO PRN ×2 (09:51→21:43)
[2021-04-01] MEDS: Carvedilol 6.25 MG TAB PO SCH ×3 (14:30→18:24)
[2021-04-01] MEDS: Atorvastatin Calcium 40 MG TAB PO SCH (21:17)
[2021-04-01] MEDS: Saccharomyces boulardii 250 MG CAP PO SCH (21:28)
[2021-04-02] MEDS: MEROPENEM 1 GM/50 ML 1 GM in Premix Bag 1 BAG IVPB SCH ×2 (01:56→11:49)
[2021-04-02] MEDS: Levothyroxine Sodium 125 MCG TAB PO SCH (06:03)
[2021-04-02 10:49] VITALS: BP 197/88; TEMP 98.3
[2021-04-02] MEDS: traMADol HCl 50 MG TAB PO PRN (10:53)
[2021-04-02] MEDS: Clopidogrel Bisulfate 75 MG TAB PO SCH (10:54)
[2021-04-02] MEDS: Aspirin 81 mg Enteric Coated Tablet PO SCH (10:54)
[2021-04-02] MEDS: Amlodipine 5 MG TAB PO SCH (10:54)
[2021-04-02] MEDS: Carvedilol 6.25 MG TAB PO SCH ×2 (10:55→11:49)
[2021-04-02] MEDS: Folic Acid 1 MG TAB PO SCH (10:55)
[2021-04-02] MEDS: Cyanocobalamin (Vitamin B-12) 1,000 MCG TAB PO SCH (10:55)
[2021-04-02] MEDS: Heparin 5,000 UNITS/ML VIAL SC SCH (10:55)
[2021-04-02] MEDS: HumaLOG 300 UNITS/3 ML VIAL SC PRN (12:22)
== END 2021-04-02 13:19 | DRG 871 ==
LOC: ERS 19:11 → 2NO 22:16
PROVIDERS: ADMIT Student in an Organized Health Care Education/Training Program; ATTEND Internal Medicine
DX: A41.59 Other Gram-negative sepsis (principal); E11.10 Type 2 diabetes mellitus with ketoacidosis without coma; G92.9 Unspecified toxic encephalopathy; N39.0 Urinary tract infection, site not specified; R65.20 Severe sepsis without septic shock; I10 Essential (primary) hypertension; E89.0 Postprocedural hypothyroidism; Z20.822 Contact with and (suspected) exposure to COVID-19; N28.1 Cyst of kidney, acquired; E53.8 Deficiency of other specified B group vitamins; E83.39 Other disorders of phosphorus metabolism; K21.9 Gastro-esophageal reflux disease without esophagitis; I25.10 Atherosclerotic heart disease of native coronary artery without angina pectoris; E88.89 Other specified metabolic disorders; T73.0XXA Starvation, initial encounter; A41.51 Sepsis due to Escherichia coli [E. coli]; Z66 Do not resuscitate; Z95.0 Presence of cardiac pacemaker; Z85.3 Personal history of malignant neoplasm of breast; Z79.82 Long term (current) use of aspirin; Z79.899 Other long term (current) drug therapy
CPT/HCPCS: 0240U; 36415; 36416; 70450; 71045; 74177; 80048; 80053; 80069; 81003; 81015; 82010; 82550; 82553; 82607; 82746; 83605; 83690; 83735; 84100; 84484; 85025; 86140; 87040; 87077; 87086; 87149; 87186; 93005; 96365; 96367; J0360; J0692; J1644; J1650; J1815; J2185; J2405; J3370; J3420; J3475; J3480; J3490; J7050; J7070; Q9967

== ENCOUNTER 2021-11-14 07:21 | Inpatient (IN) | payer OTHER, MEDICARE ==
[2021-11-14] MEDS ORDERED: Lidocaine 1% w/Epinephrine 1:100K 20 ML VIAL ONE (08:43)
[2021-11-14] MEDS ORDERED: Boostrix 0.5 ML (Tdap) VIAL ONE (08:44)
[2021-11-14 14:10] LABS: Hemoglobin 10.5 g/dL (12.0-16.0); Mean Corpuscular HGB CONC 32.6 g/dL (32.0-36.0); Mean Corpuscular Hemoglobin 35.1 pg (27.0-31.0); Mean Platelet Volume 7.1 fL (7.4-10.4); Platelet Count 191 thou/uL (130-400); RBC Distribution Width 13.1 % (11.5-14.5); Red Blood Cell (RBC) Count 2.98 mill/uL (4.20-5.40); White Blood Cell (WBC) Count 6.4 thou/uL (4.8-10.8)
[2021-11-14 14:14] LABS: INR-International Normal Ratio 1.2; Prothrombin Time 14.9 sec (12.0-14.7)
[2021-11-14 14:27] LABS: #Eosinphils 0.1 thou/uL (0.0-0.7); #Lymphocytes 1.7 thou/uL (1.20-3.40); #Monocytes 0.5 thou/uL (0.11-0.59); %Basophils 0.7 % (0.0-1.0); %Eosinophils 1.3 % (0.0-10.0); %Lymphocytes 26.7 % (21.0-51.0); %Monocytes 8.2 % (0.0-10.0); MDiff Complete? YES; Macrocytosis SLIGHT = 6-15 cells (100X) (0-5/hpf); Platelet Morphology Comment Appears Adequate; Polychromasia SLIGHT = 2-3 cells (100X) (0-2/hpf)
[2021-11-14 14:33] LABS: ALT (SGPT) 20 U/L (8-55); AST (SGOT) 33 U/L (5-34); Albumin 3.1 g/dL (3.4-4.8); Alkaline Phosphatase 46 U/L (40-110); Anion Gap 10 mmol/L (10-20); BUN (Urea Nitrogen) 13 mg/dL (9.8-20.1); Bilirubin, Total 0.6 mg/dL (0.2-1.2); Calc. Creatinine Clearance 0 mL/min (70-130); Calcium 9.1 mg/dL (7.8-10.44); Carbon Dioxide 26 mmol/L (23-31); Chloride 107 mmol/L (98-107); Globulin 3.1 g/dL (2.4-3.5); Glucose 94 mg/dL (83-110); Potassium 4.1 mmol/L (3.5-5.1); Protein, Total 6.2 g/dL (5.8-8.1); Sodium 139 mmol/L (136-145)
[2021-11-14 15:48] LABS: Bilirubin Negative (Negative); Blood, Urine Trace (Negative); Clarity Turbid (Clear); Glucose, Urine (Dipstick) Normal (Negative); Ketone, Urine Negative (Negative); Leukocyte 500 Leu/uL (Negative); Nitrite 2+ (Negative); Protein, Urine (Dipstick) 30 mg/dL (Neg-Trace); Specific Gravity, Urine 1.012 (1.002-1.036); Squamous Epithelial 0-3 HPF (0-3); Urobilinogen Normal mg/dL (Less than 2); WBC/HPF Greater than 50 HPF (0-3)
[2021-11-14 15:49] LABS: Bacteria/HPF 1+ HPF (None Seen)
[2021-11-14] MEDS ORDERED: cefTRIAXone\\ROCEPHIN 1 GM VIAL ONE (16:17)
[2021-11-14] MEDS ORDERED: Acetaminophen 325 MG TAB PO PRN (18:00)
[2021-11-14] MEDS ORDERED: Ondansetron PF 4 MG/2 ML Vial IVP PRN (18:00)
[2021-11-14] MEDS ORDERED: Ondansetron ODT 4 MG TAB SL PRN (18:00)
[2021-11-14] MEDS: Sodium Chloride 0.9% 1,000 ML IV SCH (18:23)
[2021-11-14 19:45] VITALS: BMI 24.5
[2021-11-14] MEDS: Saccharomyces boulardii 250 MG CAP PO SCH (21:27)
[2021-11-14] MEDS: Famotidine 20 MG TAB PO SCH (21:27)
[2021-11-15] MEDS: Sodium Chloride 0.9% 1,000 ML IV SCH (04:05)
[2021-11-15 05:35] LABS: #Eosinphils 0.1 thou/uL (0.0-0.7); #Lymphocytes 1.5 thou/uL (1.20-3.40); #Monocytes 0.6 thou/uL (0.11-0.59); #Neutrophils 4.1 thou/uL (1.40-6.50); %Basophils 0.7 % (0.0-1.0); %Eosinophils 1.9 % (0.0-10.0); %Lymphocytes 23.1 % (21.0-51.0); %Monocytes 9.4 % (0.0-10.0); %Neutrophils 64.9 % (42.0-75.0); Hemoglobin 9.9 g/dL (12.0-16.0); Mean Corpuscular HGB CONC 32.2 g/dL (32.0-36.0); Mean Corpuscular Hemoglobin 35.6 pg (27.0-31.0); Mean Platelet Volume 7.1 fL (7.4-10.4); Platelet Count 181 thou/uL (130-400); RBC Distribution Width 13.2 % (11.5-14.5); Red Blood Cell (RBC) Count 2.78 mill/uL (4.20-5.40); White Blood Cell (WBC) Count 6.3 thou/uL (4.8-10.8)
[2021-11-15] MEDS: Levothyroxine Sodium 125 MCG TAB PO SCH (05:45)
[2021-11-15 05:52] LABS: Anion Gap 12 mmol/L (10-20); BUN (Urea Nitrogen) 14 mg/dL (9.8-20.1); Calc. Creatinine Clearance 27 mL/min (70-130); Calcium 8.6 mg/dL (7.8-10.44); Carbon Dioxide 22 mmol/L (23-31); Chloride 109 mmol/L (98-107); Glucose 91 mg/dL (83-110); Potassium 3.7 mmol/L (3.5-5.1); Sodium 139 mmol/L (136-145)
[2021-11-15] MEDS: Carvedilol 6.25 MG TAB PO SCH ×3 (08:33→18:15)
[2021-11-15] MEDS: Cyanocobalamin (Vitamin B-12) 1,000 MCG TAB PO SCH (08:35)
[2021-11-15] MEDS: Atorvastatin Calcium 40 MG TAB PO SCH (08:35)
[2021-11-15] MEDS ORDERED: Dextrose 50% Abboject 50 ML SYRINGE SLOW IVP PRN (10:43)
[2021-11-15] MEDS ORDERED: HumaLOG 300 UNITS/3 ML VIAL SC PRN (10:43)
[2021-11-15] MEDS ORDERED: Dextrose 5% in Water 1,000 ML IV PRN (10:43)
[2021-11-15] MEDS: cefTRIAXone\\ROCEPHIN 1 GM in Sodium Chloride 0.9% 100 ML IVPB SCH (18:15)
[2021-11-15] MEDS: Famotidine 20 MG TAB PO SCH (20:30)
[2021-11-15] MEDS: Saccharomyces boulardii 250 MG CAP PO SCH (20:30)
[2021-11-16] MEDS: Levothyroxine Sodium 125 MCG TAB PO SCH (05:09)
[2021-11-16 06:41] LABS: Anion Gap 10 mmol/L (10-20); BUN (Urea Nitrogen) 15 mg/dL (9.8-20.1); Calc. Creatinine Clearance 28 mL/min (70-130); Calcium 8.4 mg/dL (7.8-10.44); Carbon Dioxide 23 mmol/L (23-31); Chloride 108 mmol/L (98-107); Glucose 123 mg/dL (83-110); Potassium 3.6 mmol/L (3.5-5.1); Sodium 137 mmol/L (136-145)
[2021-11-16] MEDS: Atorvastatin Calcium 40 MG TAB PO SCH (08:35)
[2021-11-16] MEDS: Cyanocobalamin (Vitamin B-12) 1,000 MCG TAB PO SCH (08:35)
[2021-11-16] MEDS: Carvedilol 6.25 MG TAB PO SCH ×3 (08:35→16:54)
[2021-11-16] MEDS ORDERED: traMADol HCl 50 MG TAB PO PRN (14:21)
[2021-11-16] MEDS: cefTRIAXone\\ROCEPHIN 1 GM in Sodium Chloride 0.9% 100 ML IVPB SCH (16:54)
[2021-11-16] MEDS: metFORMIN 500 MG TAB PO SCH (16:55)
[2021-11-16] MEDS: Saccharomyces boulardii 250 MG CAP PO SCH (20:10)
[2021-11-16] MEDS: Famotidine 20 MG TAB PO SCH (20:10)
[2021-11-17] MEDS: Levothyroxine Sodium 125 MCG TAB PO SCH (05:45)
[2021-11-17 05:47] LABS: #Eosinphils 0.1 thou/uL (0.0-0.7); #Lymphocytes 1.1 thou/uL (1.20-3.40); #Monocytes 0.4 thou/uL (0.11-0.59); #Neutrophils 2.7 thou/uL (1.40-6.50); %Basophils 0.6 % (0.0-1.0); %Eosinophils 1.8 % (0.0-10.0); %Lymphocytes 26.4 % (21.0-51.0); %Monocytes 8.3 % (0.0-10.0); Hemoglobin 9.3 g/dL (12.0-16.0); Mean Corpuscular HGB CONC 32.3 g/dL (32.0-36.0); Mean Platelet Volume 7.5 fL (7.4-10.4); Platelet Count 157 thou/uL (130-400); Red Blood Cell (RBC) Count 2.67 mill/uL (4.20-5.40); White Blood Cell (WBC) Count 4.3 thou/uL (4.8-10.8)
[2021-11-17 06:12] LABS: Anion Gap 10 mmol/L (10-20); BUN (Urea Nitrogen) 15 mg/dL (9.8-20.1); Calc. Creatinine Clearance 27 mL/min (70-130); Calcium 8.7 mg/dL (7.8-10.44); Carbon Dioxide 23 mmol/L (23-31); Chloride 109 mmol/L (98-107); Glucose 110 mg/dL (83-110); Potassium 3.3 mmol/L (3.5-5.1); Sodium 139 mmol/L (136-145)
[2021-11-17] MEDS: Sucralfate 1 GM TAB PO SCH (08:16)
[2021-11-17] MEDS: Carvedilol 6.25 MG TAB PO SCH ×3 (08:16→17:35)
[2021-11-17] MEDS: Folic Acid 1 MG TAB PO SCH (08:17)
[2021-11-17] MEDS: metFORMIN 500 MG TAB PO SCH ×2 (08:17→17:35)
[2021-11-17] MEDS: Fenofibrate Nanocrystallized 145 MG TAB PO SCH (08:17)
[2021-11-17] MEDS: Atorvastatin Calcium 40 MG TAB PO SCH (08:17)
[2021-11-17] MEDS: Cyanocobalamin (Vitamin B-12) 1,000 MCG TAB PO SCH (08:17)
[2021-11-17] MEDS ORDERED: Potassium Chloride 20 MEQ TAB PO SCH (08:30)
[2021-11-17] MEDS: cefTRIAXone\\ROCEPHIN 1 GM in Sodium Chloride 0.9% 100 ML IVPB SCH (15:32)
[2021-11-17] MEDS: Famotidine 20 MG TAB PO SCH (20:38)
[2021-11-17] MEDS: Saccharomyces boulardii 250 MG CAP PO SCH (20:38)
[2021-11-18] MEDS: Levothyroxine Sodium 100 MCG TAB PO SCH (05:12)
[2021-11-18 06:43] LABS: Anion Gap 12 mmol/L (10-20); BUN (Urea Nitrogen) 14 mg/dL (9.8-20.1); Calc. Creatinine Clearance 30 mL/min (70-130); Calcium 8.7 mg/dL (7.8-10.44); Carbon Dioxide 21 mmol/L (23-31); Chloride 109 mmol/L (98-107); Glucose 107 mg/dL (83-110); Potassium 3.3 mmol/L (3.5-5.1); Sodium 139 mmol/L (136-145)
[2021-11-18] MEDS: Carvedilol 6.25 MG TAB PO SCH ×3 (08:36→17:02)
[2021-11-18] MEDS: Cyanocobalamin (Vitamin B-12) 1,000 MCG TAB PO SCH (08:37)
[2021-11-18] MEDS: Folic Acid 1 MG TAB PO SCH (08:37)
[2021-11-18] MEDS: Fenofibrate Nanocrystallized 145 MG TAB PO SCH (08:37)
[2021-11-18] MEDS: Sucralfate 1 GM TAB PO SCH (08:37)
[2021-11-18] MEDS: Atorvastatin Calcium 40 MG TAB PO SCH (08:37)
[2021-11-18] MEDS: metFORMIN 500 MG TAB PO SCH ×2 (08:37→17:02)
[2021-11-18] MEDS ORDERED: Potassium Chloride 20 MEQ TAB PO SCH (12:00)
[2021-11-18] MEDS: cefTRIAXone\\ROCEPHIN 1 GM in Sodium Chloride 0.9% 100 ML IVPB SCH (17:02)
[2021-11-18] MEDS: Famotidine 20 MG TAB PO SCH (20:07)
[2021-11-18] MEDS: Saccharomyces boulardii 250 MG CAP PO SCH (20:07)
[2021-11-19] MEDS: Levothyroxine Sodium 100 MCG TAB PO SCH (05:14)
[2021-11-19 06:54] LABS: Anion Gap 11 mmol/L (10-20); BUN (Urea Nitrogen) 14 mg/dL (9.8-20.1); Calc. Creatinine Clearance 32 mL/min (70-130); Calcium 8.6 mg/dL (7.8-10.44); Carbon Dioxide 21 mmol/L (23-31); Chloride 111 mmol/L (98-107); Glucose 90 mg/dL (83-110); Potassium 3.6 mmol/L (3.5-5.1); Sodium 139 mmol/L (136-145)
[2021-11-19] MEDS: Sucralfate 1 GM TAB PO SCH (08:22)
[2021-11-19] MEDS: Fenofibrate Nanocrystallized 145 MG TAB PO SCH (08:22)
[2021-11-19] MEDS: Carvedilol 6.25 MG TAB PO SCH ×3 (08:23→16:11)
[2021-11-19] MEDS: Folic Acid 1 MG TAB PO SCH (08:23)
[2021-11-19] MEDS: Cyanocobalamin (Vitamin B-12) 1,000 MCG TAB PO SCH (08:23)
[2021-11-19] MEDS: Atorvastatin Calcium 40 MG TAB PO SCH (08:23)
[2021-11-19] MEDS: metFORMIN 500 MG TAB PO SCH ×2 (08:24→16:11)
[2021-11-19] MEDS: cefTRIAXone\\ROCEPHIN 1 GM in Sodium Chloride 0.9% 100 ML IVPB SCH (16:11)
[2021-11-19] MEDS: Famotidine 20 MG TAB PO SCH (20:46)
[2021-11-19] MEDS: Saccharomyces boulardii 250 MG CAP PO SCH (20:46)
[2021-11-20] MEDS: Levothyroxine Sodium 100 MCG TAB PO SCH (05:02)
[2021-11-20] MEDS: Folic Acid 1 MG TAB PO SCH (08:00)
[2021-11-20] MEDS: Carvedilol 6.25 MG TAB PO SCH ×3 (08:00→16:53)
[2021-11-20] MEDS: Clopidogrel Bisulfate 75 MG TAB PO SCH (08:01)
[2021-11-20] MEDS: metFORMIN 500 MG TAB PO SCH ×2 (08:01→16:53)
[2021-11-20] MEDS: Cyanocobalamin (Vitamin B-12) 1,000 MCG TAB PO SCH (08:01)
[2021-11-20] MEDS: Fenofibrate Nanocrystallized 145 MG TAB PO SCH (08:01)
[2021-11-20] MEDS: Sucralfate 1 GM TAB PO SCH (08:01)
[2021-11-20] MEDS: Atorvastatin Calcium 40 MG TAB PO SCH (08:01)
[2021-11-20] MEDS: cefTRIAXone\\ROCEPHIN 1 GM in Sodium Chloride 0.9% 100 ML IVPB SCH (16:53)
[2021-11-20] MEDS: Famotidine 20 MG TAB PO SCH (20:11)
[2021-11-20] MEDS: Saccharomyces boulardii 250 MG CAP PO SCH (20:11)
[2021-11-21] MEDS: Levothyroxine Sodium 100 MCG TAB PO SCH (05:24)
[2021-11-21] MEDS: Cyanocobalamin (Vitamin B-12) 1,000 MCG TAB PO SCH (08:57)
[2021-11-21] MEDS: Clopidogrel Bisulfate 75 MG TAB PO SCH (08:57)
[2021-11-21] MEDS: Fenofibrate Nanocrystallized 145 MG TAB PO SCH (08:57)
[2021-11-21] MEDS: Sucralfate 1 GM TAB PO SCH (08:57)
[2021-11-21] MEDS: Carvedilol 6.25 MG TAB PO SCH ×3 (08:57→17:42)
[2021-11-21] MEDS: metFORMIN 500 MG TAB PO SCH ×2 (08:57→17:42)
[2021-11-21] MEDS: Folic Acid 1 MG TAB PO SCH (08:58)
[2021-11-21] MEDS: Atorvastatin Calcium 40 MG TAB PO SCH (08:58)
[2021-11-21] MEDS: Saccharomyces boulardii 250 MG CAP PO SCH (20:17)
[2021-11-21] MEDS: Famotidine 20 MG TAB PO SCH (20:17)
[2021-11-22] MEDS: Levothyroxine Sodium 100 MCG TAB PO SCH (05:54)
[2021-11-22] MEDS: Fenofibrate Nanocrystallized 145 MG TAB PO SCH (08:44)
[2021-11-22] MEDS: Folic Acid 1 MG TAB PO SCH (08:44)
[2021-11-22] MEDS: Carvedilol 6.25 MG TAB PO SCH ×3 (08:44→17:27)
[2021-11-22] MEDS: Sucralfate 1 GM TAB PO SCH (08:44)
[2021-11-22] MEDS: Atorvastatin Calcium 40 MG TAB PO SCH (08:44)
[2021-11-22] MEDS: Clopidogrel Bisulfate 75 MG TAB PO SCH (08:44)
[2021-11-22] MEDS: Cyanocobalamin (Vitamin B-12) 1,000 MCG TAB PO SCH (08:44)
[2021-11-22] MEDS: metFORMIN 500 MG TAB PO SCH ×2 (08:44→17:27)
[2021-11-22] MEDS: Famotidine 20 MG TAB PO SCH (20:16)
[2021-11-22] MEDS: Saccharomyces boulardii 250 MG CAP PO SCH (20:16)
[2021-11-23] MEDS: Levothyroxine Sodium 100 MCG TAB PO SCH (05:24)
[2021-11-23] MEDS: Clopidogrel Bisulfate 75 MG TAB PO SCH (08:35)
[2021-11-23] MEDS: Fenofibrate Nanocrystallized 145 MG TAB PO SCH (08:35)
[2021-11-23] MEDS: Carvedilol 6.25 MG TAB PO SCH ×3 (08:35→17:45)
[2021-11-23] MEDS: Sucralfate 1 GM TAB PO SCH (08:35)
[2021-11-23] MEDS: Cyanocobalamin (Vitamin B-12) 1,000 MCG TAB PO SCH (08:35)
[2021-11-23] MEDS: Atorvastatin Calcium 40 MG TAB PO SCH (08:35)
[2021-11-23] MEDS: metFORMIN 500 MG TAB PO SCH ×2 (08:35→17:45)
[2021-11-23] MEDS: Folic Acid 1 MG TAB PO SCH (08:35)
[2021-11-23] MEDS ORDERED: Ergocalciferol 1.25 MG(50,000 UNITS) CAP PO SCH (09:00)
[2021-11-23] MEDS: Famotidine 20 MG TAB PO SCH (20:07)
[2021-11-23] MEDS: Saccharomyces boulardii 250 MG CAP PO SCH (20:07)
[2021-11-24] MEDS: Levothyroxine Sodium 100 MCG TAB PO SCH (05:17)
[2021-11-24] MEDS: Carvedilol 6.25 MG TAB PO SCH (08:07)
[2021-11-24] MEDS: Clopidogrel Bisulfate 75 MG TAB PO SCH (08:07)
[2021-11-24] MEDS: Sucralfate 1 GM TAB PO SCH (08:07)
[2021-11-24] MEDS: Cyanocobalamin (Vitamin B-12) 1,000 MCG TAB PO SCH (08:07)
[2021-11-24 08:08] VITALS: BP 132/80
[2021-11-24] MEDS: metFORMIN 500 MG TAB PO SCH (08:08)
[2021-11-24] MEDS: Folic Acid 1 MG TAB PO SCH (08:08)
[2021-11-24] MEDS: Atorvastatin Calcium 40 MG TAB PO SCH (08:08)
[2021-11-24] MEDS: Fenofibrate Nanocrystallized 145 MG TAB PO SCH (08:08)
[2021-11-24 08:37] VITALS: TEMP 97.8
== END 2021-11-24 10:08 | DRG 689 ==
LOC: ERS 07:21 → 2SW 16:23 → OBSVTOIN 19:59 → T4-A 11-15 19:03
PROVIDERS: ADMIT Internal Medicine; ATTEND Internal Medicine
DX: N30.00 Acute cystitis without hematuria (principal); G93.41 Metabolic encephalopathy; N17.9 Acute kidney failure, unspecified; S02.2XXA Fracture of nasal bones, initial encounter for closed fracture; Z20.822 Contact with and (suspected) exposure to COVID-19; I25.10 Atherosclerotic heart disease of native coronary artery without angina pectoris; E11.9 Type 2 diabetes mellitus without complications; I10 Essential (primary) hypertension; W01.0XXA Fall on same level from slipping, tripping and stumbling without subsequent striking against object, initial encounter; R04.0 Epistaxis; E03.9 Hypothyroidism, unspecified; B96.20 Unspecified Escherichia coli [E. coli] as the cause of diseases classified elsewhere; E87.6 Hypokalemia; Z85.3 Personal history of malignant neoplasm of breast; I25.2 Old myocardial infarction; Z79.899 Other long term (current) drug therapy; Z79.84 Long term (current) use of oral hypoglycemic drugs; Z79.82 Long term (current) use of aspirin; Z79.890 Hormone replacement therapy
CPT/HCPCS: 36415; 36416; 70450; 70486; 72125; 80048; 80053; 81003; 81015; 84443; 84484; 85025; 85610; 85730; 87077; 87086; 87186; 90471; 90715; 93005; 96365; J0696; J3490; J7050; U0003; U0005

== ENCOUNTER 2021-11-24 20:11 | Emergency (ER) | payer MEDICARE | END 2021-11-24 23:02 | LOC: ERS 20:11 | DX: S51.011A Laceration without foreign body of right elbow, initial encounter (principal); S00.83XA Contusion of other part of head, initial encounter; E11.9 Type 2 diabetes mellitus without complications; I10 Essential (primary) hypertension; Z79.899 Other long term (current) drug therapy; Z79.84 Long term (current) use of oral hypoglycemic drugs; Z79.82 Long term (current) use of aspirin; W06.XXXA Fall from bed, initial encounter | CPT/HCPCS: 70450; 72125; 93005 ==

== ENCOUNTER 2022-02-11 20:42 | Inpatient (IN) | payer MEDICARE ==
[2022-02-11 22:04] LABS: #Eosinphils 0.1 thou/uL (0.0-0.7); #Lymphocytes 0.9 thou/uL (1.20-3.40); #Monocytes 0.6 thou/uL (0.11-0.59); #Neutrophils 7.6 thou/uL (1.40-6.50); %Basophils 0.1 % (0.0-1.0); %Eosinophils 0.8 % (0.0-10.0); %Lymphocytes 10.1 % (21.0-51.0); %Monocytes 6.7 % (0.0-10.0); %Neutrophils 82.3 % (42.0-75.0); Hemoglobin 12.2 g/dL (12.0-16.0); Mean Corpuscular HGB CONC 33.6 g/dL (32.0-36.0); Mean Corpuscular Hemoglobin 33.7 pg (27.0-31.0); Mean Platelet Volume 7.2 fL (7.4-10.4); Platelet Count 172 thou/uL (130-400); RBC Distribution Width 12.1 % (11.5-14.5); Red Blood Cell (RBC) Count 3.61 mill/uL (4.20-5.40); White Blood Cell (WBC) Count 9.2 thou/uL (4.8-10.8)
[2022-02-11 22:28] LABS: ALT (SGPT) 19 U/L (8-55); AST (SGOT) 27 U/L (5-34); Albumin 3.4 g/dL (3.4-4.8); Alkaline Phosphatase 56 U/L (40-110); Anion Gap 14 mmol/L (10-20); BUN (Urea Nitrogen) 14 mg/dL (9.8-20.1); Bilirubin, Total 0.5 mg/dL (0.2-1.2); Calc. Creatinine Clearance 0 mL/min (70-130); Calcium 8.7 mg/dL (7.8-10.44); Carbon Dioxide 22 mmol/L (23-31); Chloride 105 mmol/L (98-107); Estimated GFR 43; Globulin 3.1 g/dL (2.4-3.5); Glucose 161 mg/dL (83-110); Potassium 3.7 mmol/L (3.5-5.1); Protein, Total 6.5 g/dL (5.8-8.1); Sodium 137 mmol/L (136-145)
[2022-02-11 23:47] LABS: Bilirubin Negative (Negative); Blood, Urine Trace (Negative); Clarity Turbid (Clear); Glucose, Urine (Dipstick) Normal (Negative); Ketone, Urine Negative (Negative); Leukocyte 500 Leu/uL (Negative); Nitrite Negative (Negative); Protein, Urine (Dipstick) 50 mg/dL (Neg-Trace); Specific Gravity, Urine 1.011 (1.002-1.036); Squamous Epithelial 0-3 HPF (0-3); Urobilinogen Normal mg/dL (Less than 2); WBC/HPF Greater than 50 HPF (0-3); pH, Urine 6.5 (5.0-9.0)
[2022-02-12] LABS: Bacteria/HPF 1+ HPF (None Seen)
[2022-02-12] MEDS ORDERED: Dextrose 50% Abboject 50 ML SYRINGE SLOW IVP PRN (00:12)
[2022-02-12] MEDS ORDERED: Morphine 4 MG/ML VIAL SLOW IVP PRN (00:12)
[2022-02-12] MEDS ORDERED: Ondansetron PF 4 MG/2 ML Vial IVP PRN (00:12)
[2022-02-12] MEDS ORDERED: hydrALAZINE 20 MG/ML VIAL SLOW IVP PRN ×2 (00:12→00:14)
[2022-02-12] MEDS ORDERED: Ondansetron ODT 4 MG TAB PO PRN (00:12)
[2022-02-12] MEDS ORDERED: Morphine 2 MG/ML VIAL SLOW IVP PRN (00:12)
[2022-02-12] MEDS ORDERED: Dextrose 5% in Water 1,000 ML IV PRN (00:12)
[2022-02-12] MEDS ORDERED: Acetaminophen/Codeine 30-300mg Tablet PO PRN (00:14)
[2022-02-12] MEDS ORDERED: Cyclobenzaprine 10 MG TAB PO PRN (00:14)
[2022-02-12] MEDS ORDERED: Sodium Chloride 0.9% 1,000 ML IV SCH (00:15)
[2022-02-12 00:29] LABS: Phosphorus 2.8 mg/dL (2.3-4.7)
[2022-02-12 00:31] LABS: Magnesium 1.9 mg/dL (1.6-2.6)
[2022-02-12 01:58] VITALS: BMI 23.0
[2022-02-12 02:31] LABS: SARS-CoV-2 NAA Rapid Test Not Detected (NotDetected)
[2022-02-12] MEDS: Acetaminophen 325 MG TAB PO SCH ×4 (03:50→20:20)
[2022-02-12] MEDS: Gabapentin 100 MG CAP PO SCH ×3 (05:41→17:12)
[2022-02-12] MEDS ORDERED: CEFAZOLIN 2 GM in Sodium Chloride 0.9% 100 ML IVPB SCH (07:15)
[2022-02-12] MEDS: Senokot S 8.6-50 MG TAB PO SCH ×2 (08:44→20:20)
[2022-02-12] MEDS: Famotidine 20 MG TAB PO SCH (08:44)
[2022-02-12] MEDS: Polyethylene Glycol 3350 17 GM Packet PO SCH (09:00)
[2022-02-12] MEDS ORDERED: Sodium Chloride 0.9% 100 ML ONE ×2 (12:16→14:15)
[2022-02-12] MEDS ORDERED: Tranexamic Acid 1,000 MG/10 ML VIAL ONE (12:16)
[2022-02-12] MEDS ORDERED: Levofloxacin 500 mg/D5W 100 ml Premix Bag ONE (12:16)
[2022-02-12] MEDS ORDERED: Tranexamic Acid 1,000 MG in Sodium Chloride 0.9% 250 ML 250 ML IVPB SCH (13:00)
[2022-02-12] MEDS ORDERED: CEFAZOLIN 2 GM VIAL ONE (14:15)
[2022-02-12] MEDS ORDERED: Ketamine 50 MG/ML (10ML VIAL) ONE (14:19)
[2022-02-12] MEDS ORDERED: fentaNYL Citrate/PF 100 MCG/2 ML SYRINGE ONE (14:19)
[2022-02-12] MEDS ORDERED: PROPOFOL 200 MG/20 ML VIAL ONE (14:31)
[2022-02-12] MEDS ORDERED: Rocuronium Bromide 10 MG/ML (10ML VIAL) ONE (14:31)
[2022-02-12] MEDS ORDERED: Ondansetron PF 4 MG/2 ML Vial ONE (14:31)
[2022-02-12] MEDS ORDERED: Lidocaine 1% MPF 2 ML VIAL ONE (14:31)
[2022-02-12] MEDS ORDERED: Phenylephrine 10 MG/ML VIAL ONE (14:31)
[2022-02-12] MEDS ORDERED: Dexamethasone 20 MG/5 ML VIAL ONE (14:31)
[2022-02-12] MEDS ORDERED: ePHEDrine 50 MG/ML VIAL ONE (14:31)
[2022-02-12] MEDS ORDERED: SUGAMMADEX SODIUM 200 MG/2 ML VIAL ONE (16:08)
[2022-02-12] MEDS ORDERED: Morphine Sulfate 2 MG/ML SYRINGE SLOW IVP PRN (16:41)
[2022-02-12] MEDS ORDERED: Promethazine HCl 25 MG/ML VIAL IM PRN (16:41)
[2022-02-12] MEDS ORDERED: Ondansetron HCl/PF 4 MG/2 ML Vial IVP PRN (16:41)
[2022-02-12] MEDS ORDERED: Promethazine HCl 25 MG/ML VIAL IVPB PRN (16:41)
[2022-02-12] MEDS ORDERED: hydrALAZINE 20 MG/ML VIAL ONE (17:01)
[2022-02-12] MEDS: CEFAZOLIN 2 GM in Sodium Chloride 0.9% 100 ML IVPB SCH (21:58)
[2022-02-13] MEDS: Gabapentin 100 MG CAP PO SCH ×4 (00:01→23:37)
[2022-02-13] MEDS: Acetaminophen 325 MG TAB PO SCH ×5 (03:26→23:39)
[2022-02-13] MEDS: CEFAZOLIN 2 GM in Sodium Chloride 0.9% 100 ML IVPB SCH (05:28)
[2022-02-13 06:22] LABS: #Lymphocytes 0.7 thou/uL (1.20-3.40); #Monocytes 0.5 thou/uL (0.11-0.59); #Neutrophils 5.6 thou/uL (1.40-6.50); %Basophils 0.2 % (0.0-1.0); %Eosinophils 0.4 % (0.0-10.0); %Lymphocytes 10.2 % (21.0-51.0); %Neutrophils 82.3 % (42.0-75.0); Mean Corpuscular HGB CONC 31.9 g/dL (32.0-36.0); Mean Corpuscular Hemoglobin 31.9 pg (27.0-31.0); Mean Platelet Volume 6.8 fL (7.4-10.4); Platelet Count 181 thou/uL (130-400); RBC Distribution Width 12.1 % (11.5-14.5); Red Blood Cell (RBC) Count 3.43 mill/uL (4.20-5.40); White Blood Cell (WBC) Count 6.8 thou/uL (4.8-10.8)
[2022-02-13 06:39] LABS: Anion Gap 13 mmol/L (10-20); BUN (Urea Nitrogen) 12 mg/dL (9.8-20.1); Calc. Creatinine Clearance 24 mL/min (70-130); Calcium 8.4 mg/dL (7.8-10.44); Carbon Dioxide 22 mmol/L (23-31); Chloride 106 mmol/L (98-107); Estimated GFR 38; Glucose 181 mg/dL (83-110); Magnesium 1.7 mg/dL (1.6-2.6); Phosphorus 3.1 mg/dL (2.3-4.7); Potassium 3.4 mmol/L (3.5-5.1); Sodium 138 mmol/L (136-145)
[2022-02-13] MEDS: Polyethylene Glycol 3350 17 GM Packet PO SCH (09:31)
[2022-02-13] MEDS: Senokot S 8.6-50 MG TAB PO SCH ×2 (09:31→20:30)
[2022-02-13] MEDS: Famotidine 20 MG TAB PO SCH (09:32)
[2022-02-13] MEDS: Acetaminophen/Codeine 30-300mg Tablet PO SCH ×3 (11:39→23:38)
[2022-02-13] MEDS ORDERED: Magnesium Sulfate 2 GM in Sodium Chloride 0.9% 100 ML IVPB SCH (13:15)
[2022-02-13] MEDS ORDERED: Magnesium 2 GM/50 ML(in water) 2 GM in Premix Bag 1 BAG IVPB SCH (13:45)
[2022-02-13] MEDS: Carvedilol 6.25 MG TAB PO SCH (17:19)
[2022-02-13] MEDS ORDERED: Potassium Phosphate 30 MMOL in Sodium Chloride 0.9% 250 ML 250 ML IVPB SCH (17:30)
[2022-02-13] MEDS: Sulfameth/Trimethoprim DS 800-160mg TAB PO SCH (20:30)
[2022-02-13] MEDS: traZODone HCl 50 MG TAB PO SCH (20:30)
[2022-02-13] MEDS: Saccharomyces boulardii 250 MG CAP PO SCH (20:30)
[2022-02-13] MEDS ORDERED: Heparin 5,000 UNITS/ML VIAL SC SCH (21:00)
[2022-02-13] MEDS ORDERED: Non-Formulary Item 1 EACH (Trazodone Hcl [Trazodone Hcl] 100 MG Tablet) PO SCH (21:00)
[2022-02-13] MEDS ORDERED: Insulin Regular 300 UNITS/3 ML VIAL SC PRN (22:23)
[2022-02-14] MEDS: Levothyroxine Sodium 125 MCG TAB PO SCH (05:19)
[2022-02-14] MEDS: Acetaminophen 325 MG TAB PO SCH ×4 (05:19→22:30)
[2022-02-14] MEDS: Acetaminophen/Codeine 30-300mg Tablet PO SCH ×2 (05:20→09:53)
[2022-02-14 06:10] LABS: #Eosinphils 0.3 thou/uL (0.0-0.7); #Lymphocytes 1.2 thou/uL (1.20-3.40); #Monocytes 0.7 thou/uL (0.11-0.59); #Neutrophils 5.6 thou/uL (1.40-6.50); %Basophils 0.1 % (0.0-1.0); %Eosinophils 3.3 % (0.0-10.0); %Lymphocytes 15.7 % (21.0-51.0); %Monocytes 9.5 % (0.0-10.0); %Neutrophils 71.4 % (42.0-75.0); Hemoglobin 11.7 g/dL (12.0-16.0); Mean Corpuscular Hemoglobin 32.4 pg (27.0-31.0); Mean Platelet Volume 7.3 fL (7.4-10.4); Platelet Count 181 thou/uL (130-400); RBC Distribution Width 12.2 % (11.5-14.5); White Blood Cell (WBC) Count 7.8 thou/uL (4.8-10.8)
[2022-02-14 06:34] LABS: ALT (SGPT) 8 U/L (8-55); AST (SGOT) 25 U/L (5-34); Albumin 3.1 g/dL (3.4-4.8); Alkaline Phosphatase 62 U/L (40-110); Anion Gap 13 mmol/L (10-20); BUN (Urea Nitrogen) 11 mg/dL (9.8-20.1); Bilirubin, Total 0.3 mg/dL (0.2-1.2); Calc. Creatinine Clearance 33 mL/min (70-130); Calcium 8.3 mg/dL (7.8-10.44); Carbon Dioxide 18 mmol/L (23-31); Chloride 110 mmol/L (98-107); Estimated GFR 55; Globulin 3.7 g/dL (2.4-3.5); Glucose 173 mg/dL (83-110); Magnesium 2.3 mg/dL (1.6-2.6); Phosphorus 2.8 mg/dL (2.3-4.7); Potassium 4.3 mmol/L (3.5-5.1); Protein, Total 6.8 g/dL (5.8-8.1); Sodium 137 mmol/L (136-145)
[2022-02-14] MEDS: Fenofibrate Nanocrystallized 145 MG TAB PO SCH (08:21)
[2022-02-14] MEDS: Folic Acid 1 MG TAB PO SCH (08:21)
[2022-02-14] MEDS: Clopidogrel Bisulfate 75 MG TAB PO SCH (08:21)
[2022-02-14] MEDS: Famotidine 20 MG TAB PO SCH (08:22)
[2022-02-14] MEDS: Carvedilol 6.25 MG TAB PO SCH ×2 (08:22→16:37)
[2022-02-14] MEDS: Atorvastatin Calcium 40 MG TAB PO SCH (08:23)
[2022-02-14] MEDS: Sulfameth/Trimethoprim DS 800-160mg TAB PO SCH ×2 (08:23→20:28)
[2022-02-14] MEDS: Gabapentin 100 MG CAP PO SCH ×2 (08:23→16:38)
[2022-02-14] MEDS: Senokot S 8.6-50 MG TAB PO SCH ×2 (08:24→20:28)
[2022-02-14] MEDS: Polyethylene Glycol 3350 17 GM Packet PO SCH (08:24)
[2022-02-14] MEDS ORDERED: Lisinopril 10 MG TAB PO SCH (09:00)
[2022-02-14] MEDS: Lisinopril 10 MG TAB PO SCH (09:53)
[2022-02-14] MEDS: Insulin Regular 300 UNITS/3 ML VIAL SC PRN (12:25)
[2022-02-14] MEDS ORDERED: Bisacodyl 10 MG SUPP PR PRN (14:42)
[2022-02-14] MEDS: Saccharomyces boulardii 250 MG CAP PO SCH (20:29)
[2022-02-14] MEDS: traZODone HCl 50 MG TAB PO SCH (22:30)
[2022-02-15] MEDS: Gabapentin 100 MG CAP PO SCH ×2 (00:14→10:07)
[2022-02-15] MEDS: Acetaminophen 325 MG TAB PO SCH (05:55)
[2022-02-15] MEDS: Levothyroxine Sodium 125 MCG TAB PO SCH (05:56)
[2022-02-15] MEDS: Insulin Regular 300 UNITS/3 ML VIAL SC PRN ×2 (06:56→12:33)
[2022-02-15] MEDS: Atorvastatin Calcium 40 MG TAB PO SCH (09:57)
[2022-02-15] MEDS: Folic Acid 1 MG TAB PO SCH (09:57)
[2022-02-15] MEDS: Famotidine 20 MG TAB PO SCH (09:57)
[2022-02-15] MEDS: Clopidogrel Bisulfate 75 MG TAB PO SCH (09:57)
[2022-02-15] MEDS: Fenofibrate Nanocrystallized 145 MG TAB PO SCH (09:57)
[2022-02-15] MEDS: Sulfameth/Trimethoprim DS 800-160mg TAB PO SCH (09:57)
[2022-02-15] MEDS: Polyethylene Glycol 3350 17 GM Packet PO SCH (09:58)
[2022-02-15] MEDS: Senokot S 8.6-50 MG TAB PO SCH (09:58)
[2022-02-15] MEDS: Carvedilol 6.25 MG TAB PO SCH (09:58)
[2022-02-15] MEDS: Lisinopril 10 MG TAB PO SCH (09:58)
[2022-02-15] MEDS ORDERED: Acetaminophen 325 MG TAB PO SCH (12:00)
[2022-02-15] MEDS ORDERED: Gabapentin 100 MG CAP PO SCH (14:00)
[2022-02-15 16:24] VITALS: BP 137/74; TEMP 97.2
== END 2022-02-15 16:35 | DRG 522 ==
LOC: ERS 20:42 → SURG A 22:43
PROVIDERS: ADMIT Specialist; ATTEND Specialist
PROC: 0SRR0JZ Replacement of Right Hip Joint, Femoral Surface with Synthetic Substitute, Open Approach (ICD-10-PCS; principal; 2022-02-12)
DX: S72.011A Unspecified intracapsular fracture of right femur, initial encounter for closed fracture (principal); N39.0 Urinary tract infection, site not specified; Z20.822 Contact with and (suspected) exposure to COVID-19; I71.4 Abdominal aortic aneurysm, without rupture; E11.9 Type 2 diabetes mellitus without complications; W18.30XA Fall on same level, unspecified, initial encounter; I12.9 Hypertensive chronic kidney disease with stage 1 through stage 4 chronic kidney disease, or unspecified chronic kidney disease; N18.30 Chronic kidney disease, stage 3 unspecified; E03.9 Hypothyroidism, unspecified; R29.6 Repeated falls; S00.03XA Contusion of scalp, initial encounter; B96.1 Klebsiella pneumoniae [K. pneumoniae] as the cause of diseases classified elsewhere; Z79.899 Other long term (current) drug therapy; Z98.890 Other specified postprocedural states; Z95.1 Presence of aortocoronary bypass graft
CPT/HCPCS: 36415; 36416; 51701; 70450; 71045; 72170; 80048; 80053; 81003; 81015; 83735; 84100; 84484; 85025; 86850; 86900; 86901; 87077; 87086; 87186; 93005; C1713; C1889; G0390; J0360; J0690; J1100; J1644; J1815; J1956; J2270; J2370; J2405; J2704; J3475; J3490; J7050

== ENCOUNTER 2023-03-20 14:39 | Inpatient (IN) | payer MEDICARE ==
[~2023-03-20 14:39] MED LIST changes: -Iopamidol-370 76% 500 ML 1 ML ONE; +Iopamidol-370 76% 500 ML MDV (1 ML CHARGE) ONE
[2023-03-20] MEDS ORDERED: NOREPINEPHRINE 8 MG/250 ML-D5W 250 ML ONE (14:53)
[2023-03-20 15:02] LABS: Hematocrit 28.3 % (36.0-47.0); Hemoglobin 8.4 g/dL (12.0-16.0); Mean Corpuscular HGB CONC 29.7 g/dL (32.0-36.0); Mean Corpuscular Volume 94.3 fl (78.0-98.0); Mean Platelet Volume 10.4 fL (7.4-10.4); RBC Distribution Width 18.3 % (11.5-14.5); White Blood Cell (WBC) Count 8.5 10x3/uL (4.8-10.8)
[2023-03-20 15:03] LABS: Delete Auto Diff?? YES; Manual Diff?? YES; Platelet Count 98 10x3/uL (130-400)
[2023-03-20] MEDS ORDERED: Cefepime 2 GM VIAL ONE (15:07)
[2023-03-20 15:11] LABS: Analyzer IN Cardio ER; Base Excess (BEa) -14.6 mEq/L (-2.0 to +3.0); CO2 Tension 26.1 mmHg (35.0-45.0); Calcium, Ionized (arterial) 1.08 mmol/L (1.12-1.30); Carboxyhemoglobin (COHb) 1.6 gm% (0.0-3.0); Hematocrit-ABG 24 % (36.0-47.0); Hemoglobin (Hb) 8.1 g/dL (12.0-16.0); O2 Tension (PaO2), arterial 94.6 mmHg (> 60.0); pH, Arterial 7.252 (7.35-7.45)
[2023-03-20 15:12] LABS: Actual Bicarbonate (HCO3a) 11.2 mEq/L (22-28); Puncture Site LBA
[2023-03-20 15:22] LABS: Amphetamine Not Detected (NotDetected); Barbiturates Screen Not Detected (NotDetected); Benzodiazepine Screen Not Detected (NotDetected); Bilirubin Negative (Negative); Blood, Urine 1+ (Negative); CAUTI Indications for Culture Alt mental st,lethar; Clarity Turbid (Clear); Cocaine Metabolite Screen Not Detected (NotDetected); Glucose, Urine (Dipstick) Normal (Negative); Ketone, Urine Negative (Negative); Leukocyte 250 Leu/uL (Negative); Methadone Not Detected (NotDetected); Methamphetamine Not Detected (NotDetected); Nitrite 1+ (Negative); Opiate Screen Not Detected (NotDetected); Oxycodone Screen Not Detected (NotDetected); Phencyclidine (PCP) Not Detected (NotDetected); Protein, Urine (Dipstick) 100 mg/dL (Neg-Trace); Specific Gravity, Urine 1.012 (1.002-1.036); Squamous Epithelial 0-3 HPF (0-3); THC/Cannabinoid Screen Not Detected (NotDetected); Tricyclic Screen Not Detected (NotDetected); WBC/HPF 21-50 HPF (0-3); pH, Urine 5.5 (5.0-9.0)
[2023-03-20 15:23] LABS: Acetaminophen Less than 10 mcg/mL (10.0-30.0); Alcohol Less than 10.0 mg/dL (Less than 10); Magnesium 1.9 mg/dL (1.6-2.6); Salicylate Less than 8.0 mg/dL (15.0-30.0)
[2023-03-20 15:24] LABS: Bacteria/HPF 2+ HPF (None Seen)
[2023-03-20 15:25] LABS: Urine Culture Reflex Yes Yes
[2023-03-20 15:27] LABS: Anisocytosis SLIGHT = 6-15 cells HPF (0-5); Band 30 % (5-11); Burr Cells SLIGHT = 2-5 cells HPF (0-1); CellaVision Operator ID LAB.MJL; Large Platelets 11.3 % (0-5); Lymphocytes 9 % (21-51); Macrocytosis MODERATE=16-30 cells HPF (0-5); Metamyelocyte 9 % (0-0); Monocytes 2 % (0-10); Neutrophil 51 % (42-75); Ovalocytes SLIGHT = 2-5 cells HPF (0-1); Platelet Adequacy Comment Platelets Decreased; Poikilocytosis SLIGHT = 6-15 cells HPF (0-5); Polychromasia MODERATE = 3-4 cells HPF (0-2); Total Cell Count 106; Troponin I 0.111 ng/mL (< 0.028); Vacuoles SLIGHT
[2023-03-20 15:38] LABS: Lipase 1695 U/L (8-78)
[2023-03-20 15:49] LABS: ALT (SGPT) 69 U/L (8-55); AST (SGOT) 143 U/L (5-34); Albumin 3.3 g/dL (3.4-4.8); Alkaline Phosphatase 157 U/L (40-110); Anion Gap 24 mmol/L (10-20); BUN (Urea Nitrogen) 38 mg/dL (9.8-20.1); Bilirubin, Total 1.3 mg/dL (0.2-1.2); Calc. Creatinine Clearance 0 mL/min (70-130); Calcium 8.1 mg/dL (7.8-10.44); Carbon Dioxide 11 mmol/L (23-31); Chloride 112 mmol/L (98-107); Estimated GFR 16; Globulin 2.7 g/dL (2.4-3.5); Glucose 205 mg/dL (83-110); Potassium 3.5 mmol/L (3.5-5.1); Sodium 143 mmol/L (136-145)
[2023-03-20 16:14] LABS: INR-International Normal Ratio 1.6; Prothrombin Time 19.4 sec (12.0-14.7)
[2023-03-20 16:15] LABS: PTT 40.5 sec (22.9-36.1)
[2023-03-20] MEDS ORDERED: Ipratropium/Albuterol 3 ML NEB ONE (16:22)
[2023-03-20] MEDS ORDERED: Ondansetron PF 4 MG/2 ML Vial IVP PRN (16:38)
[2023-03-20] MEDS ORDERED: Ondansetron ODT 4 MG TAB PO PRN (16:38)
[2023-03-20] MEDS ORDERED: Piperacillin/Tazobactam 3.375 GM in Sodium Chloride 0.9% 100 ML IVPB SCH ×2 (16:45→22:00)
[2023-03-20] MEDS ORDERED: Lidocaine 1% PF 5 ML VIAL ONE (16:59)
[2023-03-20] MEDS ORDERED: Iopamidol 45 ML ONE (17:05)
[2023-03-20 17:23] LABS: Base Excess -14.8 mEq/L (-2.0 to +3.0); Calcium, Ionized (venous) 0.94 mmol/L (1.16-1.32); Chloride (VBG) 114 mmol/L (98-106); Hematocrit-VBG 26 % (36.0-47.0); Hemoglobin (Hb) 8.7 g/dL (11.7-16.1); Potassium (VBG) 3.78 mmol/L (3.70-5.30); Sodium 142 mmol/L (133-146)
[2023-03-20 17:24] LABS: Actual Bicarbonate (HCO3v) 10.3 mEq/L (22-28)
[2023-03-20] MEDS ORDERED: Indomethacin 50 MG SUPP ONE (17:25)
[2023-03-20] MEDS ORDERED: Vancomycin (BATCH) 1.25 GM in Premix 1 BAG IVPB SCH (17:30)
[2023-03-20] MEDS ORDERED: Vasopressin 20 UNITS/ML VIAL ONE (17:34)
[2023-03-20] MEDS ORDERED: Electrolyte Replacement Protocol 1 EACH FS SCH (17:45)
[2023-03-20] MEDS ORDERED: PROPOFOL 200 MG/20 ML VIAL ONE (18:39)
[2023-03-20] MEDS ORDERED: PHENYLEPHRINE-NS 100 MCG/ML 10 ML SYRINGE ONE (18:39)
[2023-03-20] MEDS ORDERED: Succinylcholine 200 MG/10 ml SYRINGE FS ONE (18:39)
[2023-03-20] MEDS ORDERED: Ondansetron PF 4 MG/2 ML Vial ONE (18:39)
[2023-03-20] MEDS ORDERED: Famotidine/PF 20 mg/2ml Vial SLOW IVP SCH (21:00)
[2023-03-20] MEDS: Sodium Chloride 0.9% 1,000 ML IV SCH (21:56)
[2023-03-20 22:07] LABS: ALT (SGPT) 69 U/L (8-55); AST (SGOT) 138 U/L (5-34); Albumin 3.1 g/dL (3.4-4.8); Alkaline Phosphatase 138 U/L (40-110); Anion Gap 19 mmol/L (10-20); BUN (Urea Nitrogen) 37 mg/dL (9.8-20.1); Bilirubin, Total 1.1 mg/dL (0.2-1.2); Calc. Creatinine Clearance 17 mL/min (70-130); Calcium 7.1 mg/dL (7.8-10.44); Carbon Dioxide 11 mmol/L (23-31); Chloride 117 mmol/L (98-107); Estimated GFR 21; Globulin 2.4 g/dL (2.4-3.5); Glucose 174 mg/dL (83-110); Magnesium 1.7 mg/dL (1.6-2.6); Phosphorus 4.6 mg/dL (2.3-4.7); Potassium 3.9 mmol/L (3.5-5.1); Protein, Total 5.5 g/dL (5.8-8.1); Sodium 143 mmol/L (136-145)
[2023-03-20 22:13] LABS: Lactic Acid 7.8 mmol/L (0.5-2.2)
[2023-03-21] MEDS ORDERED: Calcium Gluc 4.6 MEQ/10 ML (100 MG/ML) SLOW IVP SCH (01:15)
[2023-03-21] MEDS ORDERED: Sodium Bicarb 50 MEQ/50 ML Abboject 8.4% SYRINGE IVP SCH (01:15)
[2023-03-21] MEDS ORDERED: Sodium Bicarbonate 150 MEQ in Dextrose 5% in Water 1,000 ML IV SCH ×2 (01:30→11:15)
[2023-03-21] MEDS ORDERED: Piperacillin/Tazobactam 3.375 GM in Sodium Chloride 0.9% 100 ML IVPB SCH (02:00)
[2023-03-21] MEDS: Sodium Chloride 0.9% 1,000 ML IV SCH (03:37)
[2023-03-21 04:24] LABS: Hematocrit 24.4 % (36.0-47.0); Hemoglobin 7.3 g/dL (12.0-16.0); Mean Corpuscular HGB CONC 29.9 g/dL (32.0-36.0); Mean Corpuscular Hemoglobin 28.2 pg (27.0-31.0); Mean Corpuscular Volume 94.2 fl (78.0-98.0); Mean Platelet Volume 10.7 fL (7.4-10.4); Platelet Count 107 10x3/uL (130-400); RBC Distribution Width 18.8 % (11.5-14.5); Red Blood Cell (RBC) Count 2.59 mill/uL (4.20-5.40); White Blood Cell (WBC) Count 4.7 10x3/uL (4.8-10.8)
[2023-03-21 04:30] LABS: Delete Auto Diff?? YES; Manual Diff?? YES
[2023-03-21 04:52] LABS: ALT (SGPT) 73 U/L (8-55); AST (SGOT) 133 U/L (5-34); Alkaline Phosphatase 131 U/L (40-110); Anion Gap 18 mmol/L (10-20); BUN (Urea Nitrogen) 40 mg/dL (9.8-20.1); Bilirubin, Total 1.1 mg/dL (0.2-1.2); Calc. Creatinine Clearance 16 mL/min (70-130); Calcium 7.3 mg/dL (7.8-10.44); Carbon Dioxide 15 mmol/L (23-31); Chloride 114 mmol/L (98-107); Estimated GFR 19; Globulin 2.5 g/dL (2.4-3.5); Glucose 226 mg/dL (83-110); Potassium 3.8 mmol/L (3.5-5.1); Protein, Total 5.5 g/dL (5.8-8.1); Sodium 143 mmol/L (136-145)
[2023-03-21] MEDS ORDERED: Lactated Ringer's 500 ML IV SCH (05:00)
[2023-03-21] MEDS ORDERED: Vasopressin 20 UNITS in Sodium Chloride 0.9% 50 ML IV SCH (05:00)
[2023-03-21 05:25] LABS: Band 27 % (5-11); CellaVision Operator ID LAB.CLH1; Elliptocytes SLIGHT = 2-5 cells HPF (0-1); Hypochromia SLIGHT = 6-15 cells HPF (0-5); Large Platelets 6.4 % (0-5); Lymphocytes 6 % (21-51); Metamyelocyte 5 % (0-0); Monocytes 9 % (0-10); Neutrophil 50 % (42-75); Nucleated RBC (Manual Ct) 1 % (0); Platelet Adequacy Comment Platelets Decreased; Polychromasia SLIGHT = 2-3 cells HPF (0-2); Promyelocytes 4 % (0-0); Total Cell Count 109
[2023-03-21] MEDS ORDERED: Albumin 25% 25 GM/100 ML BOT IVPB SCH (05:30)
[2023-03-21 06:03] LABS: Lactic Acid 6.2 mmol/L (0.5-2.2)
[2023-03-21] MEDS: Insulin Regular 300 UNITS/3 ML VIAL SC PRN ×3 (06:15→18:20)
[2023-03-21] MEDS: NOREPINEPHRINE 8 MG/250 ML-D5W 250 ML IVPB SCH ×2 (06:18→15:47)
[2023-03-21 08:06] LABS: Hematocrit 21.9 % (36.0-47.0); Hemoglobin 6.6 g/dL (12.0-16.0); Mean Corpuscular HGB CONC 30.1 g/dL (32.0-36.0); Mean Corpuscular Hemoglobin 28.3 pg (27.0-31.0); Mean Platelet Volume 10.6 fL (7.4-10.4); Platelet Count 92 10x3/uL (130-400); RBC Distribution Width 18.9 % (11.5-14.5); Red Blood Cell (RBC) Count 2.33 mill/uL (4.20-5.40); White Blood Cell (WBC) Count 4.7 10x3/uL (4.8-10.8)
[2023-03-21] MEDS: Famotidine/PF 20 mg/2ml Vial SLOW IVP SCH (08:49)
[2023-03-21] MEDS ORDERED: HumuLIN 70/30 100 Unit/ ml 10 ml Vial SC SCH (09:30)
[2023-03-21] MEDS: Piperacillin/Tazobactam 3.375 GM in Sodium Chloride 0.9% 100 ML IVPB SCH (14:45)
[2023-03-22] MEDS: Famotidine/PF 20 mg/2ml Vial SLOW IVP SCH ×3 (00:13→21:01)
[2023-03-22] MEDS: Insulin Regular 300 UNITS/3 ML VIAL SC PRN (00:13)
[2023-03-22] MEDS: Piperacillin/Tazobactam 3.375 GM in Sodium Chloride 0.9% 100 ML IVPB SCH ×2 (01:19→13:42)
[2023-03-22 04:38] LABS: Hematocrit 23.9 % (36.0-47.0); Hemoglobin 7.6 g/dL (12.0-16.0); Mean Corpuscular HGB CONC 31.8 g/dL (32.0-36.0); Mean Corpuscular Hemoglobin 28.5 pg (27.0-31.0); Mean Platelet Volume 10.4 fL (7.4-10.4); RBC Distribution Width 17.9 % (11.5-14.5); Red Blood Cell (RBC) Count 2.67 mill/uL (4.20-5.40); White Blood Cell (WBC) Count 11.5 10x3/uL (4.8-10.8)
[2023-03-22 05:03] LABS: Lactic Acid 3.8 mmol/L (0.5-2.2)
[2023-03-22 05:08] LABS: ALT (SGPT) 64 U/L (8-55); AST (SGOT) 79 U/L (5-34); Albumin 3.2 g/dL (3.4-4.8); Alkaline Phosphatase 92 U/L (40-110); Anion Gap 17 mmol/L (10-20); BUN (Urea Nitrogen) 39 mg/dL (9.8-20.1); Bilirubin, Total 1.2 mg/dL (0.2-1.2); Calc. Creatinine Clearance 16 mL/min (70-130); Carbon Dioxide 24 mmol/L (23-31); Chloride 108 mmol/L (98-107); Estimated GFR 19; Globulin 2.4 g/dL (2.4-3.5); Glucose 161 mg/dL (83-110); Magnesium 1.7 mg/dL (1.6-2.6); Potassium 3.2 mmol/L (3.5-5.1); Protein, Total 5.6 g/dL (5.8-8.1); Sodium 146 mmol/L (136-145)
[2023-03-22 05:17] LABS: Delete Auto Diff?? YES; Manual Diff?? YES; Platelet Count 68 10x3/uL (130-400)
[2023-03-22 06:18] LABS: Anisocytosis SLIGHT = 6-15 cells HPF (0-5); Band 34 % (5-11); Burr Cells SLIGHT = 2-5 cells HPF (0-1); CellaVision Operator ID LAB.JMM; Elliptocytes SLIGHT = 2-5 cells HPF (0-1); Large Platelets 0.9 % (0-5); Lymphocytes 3 % (21-51); Macrocytosis SLIGHT = 6-15 cells HPF (0-5); Metamyelocyte 14 % (0-0); Monocytes 9 % (0-10); Myelocyte 7 % (0-0); Neutrophil 34 % (42-75); Platelet Adequacy Comment Platelets Decreased; Polychromasia SLIGHT = 2-3 cells HPF (0-2); Total Cell Count 110
[2023-03-22] MEDS: HumuLIN 70/30 100 Unit/ ml 10 ml Vial SC SCH (09:27)
[2023-03-22] MEDS: Potassium Chloride 20 MEQ in Premix 1 BAG IVPB SCH ×2 (11:48→13:43)
[2023-03-22 12:24] LABS: Mean Corpuscular Volume 89.5 fl (78.0-98.0)
[2023-03-22] MEDS ORDERED: Bisacodyl 10 MG SUPP PR SCH (13:45)
[2023-03-23] MEDS: Piperacillin/Tazobactam 3.375 GM in Sodium Chloride 0.9% 100 ML IVPB SCH ×2 (01:31→13:55)
[2023-03-23 06:36] LABS: Hematocrit 24.9 % (36.0-47.0); Hemoglobin 7.9 g/dL (12.0-16.0); Mean Corpuscular HGB CONC 31.7 g/dL (32.0-36.0); Mean Corpuscular Hemoglobin 28.4 pg (27.0-31.0); Mean Corpuscular Volume 89.6 fl (78.0-98.0); Mean Platelet Volume 12.9 fL (7.4-10.4); RBC Distribution Width 18.1 % (11.5-14.5); Red Blood Cell (RBC) Count 2.78 mill/uL (4.20-5.40); White Blood Cell (WBC) Count 11.5 10x3/uL (4.8-10.8)
[2023-03-23 06:48] LABS: Platelet Count 39 10x3/uL (130-400)
[2023-03-23 06:49] LABS: Delete Auto Diff?? YES; Manual Diff?? YES
[2023-03-23 07:37] LABS: ALT (SGPT) 54 U/L (8-55); AST (SGOT) 56 U/L (5-34); Albumin 3.1 g/dL (3.4-4.8); Alkaline Phosphatase 115 U/L (40-110); Anion Gap 17 mmol/L (10-20); BUN (Urea Nitrogen) 34 mg/dL (9.8-20.1); Bilirubin, Total 0.8 mg/dL (0.2-1.2); Calc. Creatinine Clearance 18 mL/min (70-130); Calcium 7.3 mg/dL (7.8-10.44); Carbon Dioxide 24 mmol/L (23-31); Chloride 111 mmol/L (98-107); Estimated GFR 21; Globulin 2.8 g/dL (2.4-3.5); Glucose 127 mg/dL (83-110); Magnesium 1.8 mg/dL (1.6-2.6); Potassium 3.5 mmol/L (3.5-5.1); Protein, Total 5.9 g/dL (5.8-8.1); Sodium 148 mmol/L (136-145)
[2023-03-23 07:38] LABS: Anisocytosis MODERATE=16-30 cells HPF (0-5); Band 24 % (5-11); CellaVision Operator ID LAB.CMB; Lymphocytes 8 % (21-51); Macrocytosis SLIGHT = 6-15 cells HPF (0-5); Metamyelocyte 1 % (0-0); Monocytes 1 % (0-10); Myelocyte 1 % (0-0); Neutrophil 65 % (42-75); Ovalocytes SLIGHT = 2-5 cells HPF (0-1); Platelet Adequacy Comment Significant decrease; Polychromasia SLIGHT = 2-3 cells HPF (0-2); Total Cell Count 107
[2023-03-23] MEDS: Famotidine/PF 20 mg/2ml Vial SLOW IVP SCH ×2 (08:13→20:12)
[2023-03-23] MEDS: HumuLIN 70/30 100 Unit/ ml 10 ml Vial SC SCH (08:46)
[2023-03-23 12:55] LABS: Iron 15 ug/dL (50-170); Iron Binding Capacity, Total 198 mcg/dL (265-497)
[2023-03-24] MEDS: Piperacillin/Tazobactam 3.375 GM in Sodium Chloride 0.9% 100 ML IVPB SCH ×2 (02:32→15:04)
[2023-03-24 08:11] LABS: #Basophils 0.1 thou/uL (0.0-0.2); #Eosinphils 0.1 thou/uL (0.0-0.7); #Monocytes 0.5 thou/uL (0.11-0.59); #Neutrophils 7.9 thou/uL (1.40-6.50); %Basophils 0.5 % (0.0-1.0); %Eosinophils 0.5 % (0.0-10.0); %Lymphocytes 6.1 % (21.0-51.0); %Monocytes 5.2 % (0.0-10.0); %Neutrophils 86.6 % (42.0-75.0); Hemoglobin 8.7 g/dL (12.0-16.0); Mean Corpuscular HGB CONC 31.1 g/dL (32.0-36.0); Mean Corpuscular Hemoglobin 28.2 pg (27.0-31.0); Mean Corpuscular Volume 90.6 fl (78.0-98.0); Mean Platelet Volume 12.6 fL (7.4-10.4); RBC Distribution Width 18.6 % (11.5-14.5); Red Blood Cell (RBC) Count 3.09 mill/uL (4.20-5.40); White Blood Cell (WBC) Count 9.2 10x3/uL (4.8-10.8)
[2023-03-24] MEDS: Famotidine/PF 20 mg/2ml Vial SLOW IVP SCH ×2 (08:30→19:07)
[2023-03-24 08:39] LABS: Platelet Count 37 10x3/uL (130-400)
[2023-03-24 08:40] LABS: ALT (SGPT) 44 U/L (8-55); AST (SGOT) 36 U/L (5-34); Albumin 3.2 g/dL (3.4-4.8); Alkaline Phosphatase 139 U/L (40-110); Anion Gap 16 mmol/L (10-20); BUN (Urea Nitrogen) 28 mg/dL (9.8-20.1); Bilirubin, Total 0.5 mg/dL (0.2-1.2); Calc. Creatinine Clearance 23 mL/min (70-130); Calcium 7.6 mg/dL (7.8-10.44); Carbon Dioxide 25 mmol/L (23-31); Chloride 113 mmol/L (98-107); Estimated GFR 27; Globulin 2.8 g/dL (2.4-3.5); Glucose 216 mg/dL (83-110); Potassium 3.4 mmol/L (3.5-5.1)
[2023-03-24 08:52] LABS: Sodium 151 mmol/L (136-145)
[2023-03-24 09:15] LABS: Anisocytosis MARKED = >30 cells HPF (0-5); CellaVision Operator ID LAB.CMB; Elliptocytes SLIGHT = 2-5 cells HPF (0-1); Large Platelets 0.9 % (0-5); Macrocytosis SLIGHT = 6-15 cells HPF (0-5); Platelet Adequacy Comment Significant decrease; Polychromasia SLIGHT = 2-3 cells HPF (0-2); Target Cells SLIGHT = 2-5 cells HPF (0-1)
[2023-03-24] MEDS: HumuLIN 70/30 100 Unit/ ml 10 ml Vial SC SCH (10:03)
[2023-03-24] MEDS: Dextrose 5% in Water 1,000 ML IV SCH (11:54)
[2023-03-24] MEDS: Insulin Regular 300 UNITS/3 ML VIAL SC PRN ×2 (12:30→17:05)
[2023-03-25] MEDS: Insulin Regular 300 UNITS/3 ML VIAL SC PRN ×5 (00:50→20:22)
[2023-03-25] MEDS: Piperacillin/Tazobactam 3.375 GM in Sodium Chloride 0.9% 100 ML IVPB SCH ×3 (02:36→20:21)
[2023-03-25] MEDS: Dextrose 5% in Water 1,000 ML IV SCH ×3 (04:51→20:21)
[2023-03-25] MEDS: Famotidine/PF 20 mg/2ml Vial SLOW IVP SCH (08:21)
[2023-03-25] MEDS ORDERED: Insulin Glargine 30 UNITS/0.3 ML VIAL SC SCH (09:00)
[2023-03-25 10:17] LABS: #Eosinphils 0.1 thou/uL (0.0-0.7); #Monocytes 0.9 thou/uL (0.11-0.59); #Neutrophils 4.2 thou/uL (1.40-6.50); %Basophils 0.5 % (0.0-1.0); %Eosinophils 0.9 % (0.0-10.0); %Lymphocytes 9.6 % (21.0-51.0); %Monocytes 15.3 % (0.0-10.0); %Neutrophils 72.5 % (42.0-75.0); Hematocrit 29.5 % (36.0-47.0); Mean Corpuscular HGB CONC 30.5 g/dL (32.0-36.0); Mean Corpuscular Hemoglobin 28.5 pg (27.0-31.0); Mean Corpuscular Volume 93.4 fl (78.0-98.0); Platelet Count 38 10x3/uL (130-400); RBC Distribution Width 18.7 % (11.5-14.5); Red Blood Cell (RBC) Count 3.16 mill/uL (4.20-5.40); White Blood Cell (WBC) Count 5.8 10x3/uL (4.8-10.8)
[2023-03-25 10:31] VITALS: BMI 29.5
[2023-03-25 10:40] LABS: Anion Gap 15 mmol/L (10-20); BUN (Urea Nitrogen) 27 mg/dL (9.8-20.1); Calc. Creatinine Clearance 28 mL/min (70-130); Calcium 7.4 mg/dL (7.8-10.44); Carbon Dioxide 25 mmol/L (23-31); Chloride 112 mmol/L (98-107); Estimated GFR 33; Glucose 291 mg/dL (83-110); Potassium 3.4 mmol/L (3.5-5.1); Sodium 149 mmol/L (136-145)
[2023-03-25] MEDS: Insulin Glargine 30 UNITS/0.3 ML VIAL SC SCH (20:21)
[2023-03-26] MEDS: Piperacillin/Tazobactam 3.375 GM in Sodium Chloride 0.9% 100 ML IVPB SCH ×3 (04:41→20:40)
[2023-03-26] MEDS: Insulin Regular 300 UNITS/3 ML VIAL SC PRN ×4 (05:32→20:52)
[2023-03-26] MEDS ORDERED: Pantoprazole 40 MG VIAL IVP SCH (06:00)
[2023-03-26 06:16] LABS: Hematocrit 27.8 % (36.0-47.0); Hemoglobin 8.2 g/dL (12.0-16.0); Mean Corpuscular HGB CONC 29.5 g/dL (32.0-36.0); Mean Corpuscular Hemoglobin 27.9 pg (27.0-31.0); Mean Corpuscular Volume 94.6 fl (78.0-98.0); Mean Platelet Volume 12.9 fL (7.4-10.4); RBC Distribution Width 18.6 % (11.5-14.5); Red Blood Cell (RBC) Count 2.94 mill/uL (4.20-5.40); White Blood Cell (WBC) Count 4.2 10x3/uL (4.8-10.8)
[2023-03-26 06:42] LABS: Anion Gap 14 mmol/L (10-20); BUN (Urea Nitrogen) 25 mg/dL (9.8-20.1); Calc. Creatinine Clearance 31 mL/min (70-130); Calcium 7.6 mg/dL (7.8-10.44); Carbon Dioxide 28 mmol/L (23-31); Chloride 108 mmol/L (98-107); Estimated GFR 36; Glucose 319 mg/dL (83-110); Potassium 3.5 mmol/L (3.5-5.1); Sodium 146 mmol/L (136-145)
[2023-03-26 07:09] LABS: Platelet Count 41 10x3/uL (130-400)
[2023-03-26 07:11] LABS: Delete Auto Diff?? YES; Manual Diff?? YES
[2023-03-26] MEDS: Insulin Glargine 30 UNITS/0.3 ML VIAL SC SCH ×3 (07:43→20:38)
[2023-03-26 07:52] LABS: Band 17 % (5-11); CellaVision Operator ID LAB.GE; Eosinophils 6 % (0-10); Hypochromia SLIGHT = 6-15 cells HPF (0-5); Large Platelets 14.8 % (0-5); Lymphocytes 9 % (21-51); Metamyelocyte 1 % (0-0); Monocytes 5 % (0-10); Neutrophil 63 % (42-75); Platelet Adequacy Comment Platelets Decreased; Polychromasia SLIGHT = 2-3 cells HPF (0-2); Total Cell Count 88
[2023-03-26] MEDS: Dextrose 5% in Water 1,000 ML IV SCH ×2 (16:30→20:35)
[2023-03-26] MEDS: Pantoprazole 40 MG VIAL IVP SCH (20:37)
[2023-03-27 00:25] VITALS: TEMP 97.7
[2023-03-27] MEDS: Piperacillin/Tazobactam 3.375 GM in Sodium Chloride 0.9% 100 ML IVPB SCH ×2 (05:10→11:25)
[2023-03-27] MEDS: Insulin Regular 300 UNITS/3 ML VIAL SC PRN ×2 (05:47→13:19)
[2023-03-27 06:59] LABS: Hematocrit 28.3 % (36.0-47.0); Hemoglobin 8.3 g/dL (12.0-16.0); Mean Corpuscular HGB CONC 29.3 g/dL (32.0-36.0); Mean Corpuscular Volume 95.6 fl (78.0-98.0); Mean Platelet Volume 12.4 fL (7.4-10.4); RBC Distribution Width 18.2 % (11.5-14.5); Red Blood Cell (RBC) Count 2.96 mill/uL (4.20-5.40); White Blood Cell (WBC) Count 5.9 10x3/uL (4.8-10.8)
[2023-03-27 07:12] LABS: Delete Auto Diff?? YES; Manual Diff?? YES; Platelet Count 50 10x3/uL (130-400)
[2023-03-27 07:24] LABS: Anion Gap 10 mmol/L (10-20); BUN (Urea Nitrogen) 20 mg/dL (9.8-20.1); Calc. Creatinine Clearance 39 mL/min (70-130); Calcium 7.9 mg/dL (7.8-10.44); Carbon Dioxide 30 mmol/L (23-31); Chloride 101 mmol/L (98-107); Estimated GFR 46; Glucose 316 mg/dL (83-110); Potassium 3.8 mmol/L (3.5-5.1); Sodium 137 mmol/L (136-145)
[2023-03-27 07:45] LABS: Band 19 % (5-11); CellaVision Operator ID LAB.GE; Eosinophils 2 % (0-10); Large Platelets 4.9 % (0-5); Lymphocytes 4 % (21-51); Metamyelocyte 2 % (0-0); Monocytes 5 % (0-10); Myelocyte 4 % (0-0); Neutrophil 65 % (42-75); Platelet Adequacy Comment Platelets Decreased; Polychromasia SLIGHT = 2-3 cells HPF (0-2); Total Cell Count 102
[2023-03-27] MEDS ORDERED: Lactated Ringer's 1,000 ML IV SCH (07:45)
[2023-03-27] MEDS: Insulin Glargine 30 UNITS/0.3 ML VIAL SC SCH (07:45)
[2023-03-27] MEDS: Pantoprazole 40 MG VIAL IVP SCH (07:46)
[2023-03-27] MEDS ORDERED: Famotidine 20 MG TAB PER TUBE SCH (09:00)
[2023-03-27 12:30] VITALS: BP 136/70
== END 2023-03-27 17:30 | disposition expired | DRG 871 ==
LOC: SUATTDRO 14:39 → ERS 14:39 → CCU 18:22 → SDC/OP 18:22 → CCU 20:38 → T4-A 03-22 15:16
PROVIDERS: ADMIT Family Medicine; ATTEND Internal Medicine
PROC: 0FC98ZZ Extirpation of Matter from Common Bile Duct, Via Natural or Artificial Opening Endoscopic (ICD-10-PCS; principal; 2023-03-20)
PROC: 0F798DZ Dilation of Common Bile Duct with Intraluminal Device, Via Natural or Artificial Opening Endoscopic (ICD-10-PCS; 2023-03-20)
PROC: 02HV33Z Insertion of Infusion Device into Superior Vena Cava, Percutaneous Approach (ICD-10-PCS; 2023-03-20)
PROC: 6A4Z0ZZ Hypothermia, Single (ICD-10-PCS; 2023-03-20)
PROC: 4A133R1 Monitoring of Arterial Saturation, Peripheral, Percutaneous Approach (ICD-10-PCS; 2023-03-20)
PROC: 3E033XZ Introduction of Vasopressor into Peripheral Vein, Percutaneous Approach (ICD-10-PCS; 2023-03-20)
PROC: 30233N1 Transfusion of Nonautologous Red Blood Cells into Peripheral Vein, Percutaneous Approach (ICD-10-PCS; 2023-03-21)
PROC: 30233J1 Transfusion of Nonautologous Serum Albumin into Peripheral Vein, Percutaneous Approach (ICD-10-PCS; 2023-03-21)
PROC: 3E03329 Introduction of Other Anti-infective into Peripheral Vein, Percutaneous Approach (ICD-10-PCS; 2023-03-21)
PROC: 0DH67UZ Insertion of Feeding Device into Stomach, Via Natural or Artificial Opening (ICD-10-PCS; 2023-03-23)
DX: A41.51 Sepsis due to Escherichia coli [E. coli] (principal); G93.41 Metabolic encephalopathy; K85.10 Biliary acute pancreatitis without necrosis or infection; R65.21 Severe sepsis with septic shock; E87.20 Acidosis, unspecified; N17.9 Acute kidney failure, unspecified; K80.30 Calculus of bile duct with cholangitis, unspecified, without obstruction; N39.0 Urinary tract infection, site not specified; N18.4 Chronic kidney disease, stage 4 (severe); E87.0 Hyperosmolality and hypernatremia; Z66 Do not resuscitate; Z51.5 Encounter for palliative care; F03.90 Unspecified dementia, unspecified severity, without behavioral disturbance, psychotic disturbance, mood disturbance, and anxiety; I71.40 Abdominal aortic aneurysm, without rupture, unspecified; E89.0 Postprocedural hypothyroidism; R53.81 Other malaise; D63.1 Anemia in chronic kidney disease; I12.9 Hypertensive chronic kidney disease with stage 1 through stage 4 chronic kidney disease, or unspecified chronic kidney disease; D69.59 Other secondary thrombocytopenia; K63.89 Other specified diseases of intestine; E87.6 Hypokalemia; E11.22 Type 2 diabetes mellitus with diabetic chronic kidney disease; E86.9 Volume depletion, unspecified; Z79.899 Other long term (current) drug therapy; Z79.890 Hormone replacement therapy; Z79.84 Long term (current) use of oral hypoglycemic drugs; Z85.3 Personal history of malignant neoplasm of breast; Z90.10 Acquired absence of unspecified breast and nipple; Z90.13 Acquired absence of bilateral breasts and nipples
CPT/HCPCS: 36415; 36416; 36430; 36556; 36600; 51702; 70450; 71045; 74018; 74177; 74330; 80048; 80053; 80306; 80307; 81001; 82533; 82728; 82805; 83540; 83550; 83605; 83690; 83735; 84100; 84145; 84439; 84443; 84484; 85025; 85610; 85730; 86850; 86900; 86901; 87040; 87076; 87077; 87086; 87149; 87186; 93005; 96360; 96365; 96366; 96367; 96368; C2625; C9113; J0612; J0692; J1815; J2405; J2543; J2704; J3370; J3480; J3490; J7050; J7070; J7120; J7620; P9016; P9047; Q9967; S0028